=== PATIENT | female | born 1960 | race Caucasian/White ===

== ENCOUNTER 2016-10-03 20:34 | Emergency (ER) | payer OTHER ==
[~2016-10-03] VITALS: Ht 160 cm; Wt 90.5 kg
[~2016-10-03 20:34] MED LIST: CITA20TA11 PO; HYD25 PO; IBUP800T25 PO; ROPI1TAB PO; TRAM50TA2 PO
[2016-10-03 20:48] VITALS: Ht 160 cm; Wt 90.5 kg
--- NOTE | 2016-10-03 22:42 | ERA ---
ER Documentation Chief Complaint Date/Time DATE: 10/03/16 TIME: 22:41 Chief Complaint abd pain x 1 day HPI The patient is a 56-year-old female, presenting to the ER because of acute on chronic abdominal pain for 1 day, associated with dysuria. She denies fever, chills, neck pain, chest pain, dyspnea. The abdominal pain is diffuse but more tender at epigastric and suprapubic area. She complains of nausea, denies vomiting, diarrhea, constipation. She does not smoke nor drink Past medical history: Depression, anxiety, hypertension, history of right breast cancer status post chemotherapy, restless leg syndrome, chronic pain syndrome, gastritis Past surgical history: Hysterectomy, appendectomy, 3 , partial right mastectomy ROS All systems reviewed and are negative except as per history of present illness. Medications Home Meds Active Scripts Hydrocodone/Acetaminophen ([place] 5-325 Tablet) 1 Each Tablet, 1 TAB PO Q6H Y for PAIN, #7 TAB Prov:SHAYLA HOLDER MD 10/04/16 Ibuprofen* (Ibuprofen*) 600 Mg Tablet, 600 MG PO Q6H Y for PAIN, #30 TAB Prov:SHAYLA HOLDER MD 10/04/16 Sulfamethoxazole/Trimethoprim* (Bactrim Ds* Tablet) 1 Each Tablet, 1 TAB PO BID , #14 TAB Prov:SHAYLA HOLDER MD 10/04/16 Ibuprofen* (Motrin*) 800 Mg Tab, 800 MG PO Q6H Y for PAIN AND OR ELEVATED TEMP, #30 TAB Prov:ANGELI WILLARD DO 12/27/15 Reported Medications Cholecalciferol (Vitamin D3) 5,000 Unit Tablet, 5000 UNIT PO DAILY, TAB 10/04/16 Fluticasone Propionate* (Fluticasone Propionate* Nasal) 50 Mcg/[place] - 16 Gm [place].susp, 1 SPRAY NASAL DAILY, #1 BOTTLE TO EACH NOSTRIL 10/04/16 Albuterol Sulfate* (Ventolin HFA*) 18 Gm Hfa.aer.ad, 2 PUFF INHALATION Q4H Y for SHORTNESS OF BREATH, #1 INHALER 10/04/16 Hydrocodone/Acetaminophen ([place] 10-325 Tablet) 1 Each Tablet, 1 EACH PO for PAIN, TAB 10/04/16 Pantoprazole* (Pantoprazole*) 40 Mg Tablet.dr, 40 MG PO DAILY, TAB 10/04/16 Metoclopramide Hcl* (Metoclopramide Hcl*) 10 Mg Tablet, 10 MG PO DAILY Y for NAUSEA AND OR VOMITING, TAB 10/04/16 Ropinirole Hcl* (Ropinirole Hcl*) 1 Mg Tablet, 1 MG PO HS, TAB 07/04/15 Hydrochlorothiazide* (Hydrochlorothiazide*) 25 Mg Tab, 25 MG PO DAILY, TAB 04/28/14 Citalopram Hydrobromide* (Celexa*) 20 Mg Tablet, 20 MG PO DAILY, TAB 04/28/14 Discontinued Scripts Tramadol HCl (Tramadol HCl) 50 Mg Tablet, 50 MG PO Q6, #20 TAB Prov:ANGELI WILLARD DO 12/27/15 Allergies Allergies: Coded Allergies: hydromorphone (Unverified Allergy, Severe, CARDIAC ARREST PER , 02/10) morphine (Unverified Allergy, Unknown, 10/04/16) PMhx/Soc History of Surgery: Yes (TAHBSO, R Lumpectomy, C Section X3, ) Anesthesia Reaction: No Hx Neurological Disorder: No Hx Respiratory Disorders: No Hx Cardiac Disorders: Yes (HTN) Hx Psychiatric Problems: Yes (Depression with medication) Hx Miscellaneous Medical Probl: No Hx Alcohol Use: No Hx Substance Use: No Hx Tobacco Use: No Physical Exam Vitals Vital Signs Date Time Temp Pulse Resp B/P Pulse Ox O2 Delivery O2 Flow Rate FiO2 10/04/16 02:30 62 18 118/59 97 Room Air 10/03/16 20:48 97.6 74 20 156/70 97 Physical Exam Const: No acute distress. Head: Atraumatic. Eyes: Normal Conjunctiva. ENT: Normal External Ears, Nose and Mouth. Neck: Full range of motion. No meningismus. Resp: Clear to auscultation bilaterally. Cardio: Regular rate and rhythm. Abd: Soft, non distended, normal bowel sounds, vague and diffuse abdominal tenderness, no rigidity, rebound, CVA tenderness Skin: No petechiae or rashes. Back: No midline or flank tenderness. Ext: No cyanosis, or edema. Neur: Awake and alert. No focal deficit Psych: Normal Mood and Affect. Result Diagram: 10/03/16 2300 10/03/16 2300 Results 24 hrs Laboratory Tests Test 10/03/16 23:00 10/03/16 23:08 White Blood Count 7.010^3/ul Red Blood Count 4.3510^6/ul Hemoglobin 14.2g/dl Hematocrit 42.4% Mean Corpuscular Volume 97.5fl Mean Corpuscular Hemoglobin 32.6pg Mean Corpuscular Hemoglobin Concent 33.5g/dl Red Cell Distribution Width 13.3% Platelet Count 93687^3/UL Mean Platelet Volume 10.2fl Neutrophils % 60.7% Lymphocytes % 27.4% Monocytes % 9.8% Eosinophils % 1.4% Basophils % 0.4% Nucleated Red Blood Cells % 0.0/100WBC Neutrophils # 4.210^3/ul Lymphocytes # 1.910^3/ul Monocytes # 0.710^3/ul Eosinophils # 0.110^3/ul Basophils # 0.010^3/ul Nucleated Red Blood Cells # 0.010^3/ul Sodium Level 140mmol/L Potassium Level 4.3mmol/L Chloride Level 105mmol/L Carbon Dioxide Level 24mmol/L Anion Gap 15 Blood Urea Nitrogen 22mg/dl Creatinine 0.75mg/dl Glucose Level 93mg/dl Calcium Level 9.3mg/dl Total Bilirubin 0.8mg/dl Direct Bilirubin 0.00mg/dl Indirect Bilirubin 0.8mg/dl Aspartate Amino Transf (AST/SGOT) 29IU/L Alanine Aminotransferase (ALT/SGPT) 41IU/L Alkaline Phosphatase 88IU/L Total Protein 7.7g/dl Albumin 4.8g/dl Globulin 2.90g/dl Albumin/Globulin Ratio 1.65 Lipase 70U/L Bedside Urine pH (LAB) 5.5 Bedside Urine Protein (LAB) Negative Bedside Urine Glucose (UA) Negative Bedside Urine Ketones (LAB) Negative Bedside Urine Blood Negative Bedside Urine Nitrite (LAB) Negative Bedside Urine Leukocyte Esterase (L 1+ Current Medications Medications (Trade) Dose Ordered Sig/Naeem Route PRN Reason Start Time Stop Time Status Last Admin Dose Admin Ondansetron HCl (Zofran Inj) 4 mg ONCE STAT IV 10/03/16 22:57 10/03/16 23:00 DC 10/03/16 23:26 Ketorolac Tromethamine (Toradol) 30 mg ONCE STAT IV 10/03/16 22:57 10/03/16 23:00 DC 10/03/16 23:26 Pantoprazole (Protonix Iv) 40 mg ONCE ONCE IV 10/03/16 23:00 10/03/16 23:01 DC 10/03/16 23:26 Ketorolac Tromethamine (Toradol) 30 mg ONCE ONCE IV 10/04/16 01:47 10/04/16 01:50 DC 10/04/16 01:59 Procedures/MDM [place] [id number] Radiology Main Line: [phone] DIAGNOSTIC IMAGING REPORT Patient: VIOLETA ALSTON : 1960 Age: 56 Sex: F MR #: [id number] DOS: 10/03/16 2257 Ordering MD: SHAYLA HOLDER MD Location: E/R Room/Bed: PROCEDURE: CT abdomen and pelvis without contrast. CLINICAL INDICATION: Dysuria and abdominal pain TECHNIQUE: CT scan of the abdomen and pelvis without contrast was performed. Sagittal and coronal reformatted images were obtained from the axial source images. CTDI = 17.07 mGy; DLP = 896.03 mGy-cm COMPARISON: CT angiogram 07/15/2015 FINDINGS: Visualized lower thorax: The lung bases are clear. There is no evidence for pleural effusion. Liver, gallbladder, pancreas and spleen: Top normal liver size estimated at 18.6 cm with diffuse low attenuation of the hepatic parenchyma more conspicuous than previously compatible with hepatic steatosis. Normal liver contour is maintained. There is no evidence for a liver mass or ductal dilatation. Interval cholecystectomy compared to the previous exam, clips in the gallbladder fossa. No common bile duct abnormality is demonstrated. The pancreas is unremarkable. The spleen is normal in size. Adrenal glands and genitourinary system: The adrenal glands are normal bilaterally. The kidneys are normal and size, contour and attenuation with no evidence for masses, calculi or hydronephrosis. The ureters are unremarkable. The anterior urinary bladder diverticulum is less conspicuous on this unenhanced exam as is the associated lower abdominal wall ventral hernia, the urinary bladder partially contracted but with subtle stranding of the surrounding fat unable to exclude cystitis. The uterus is not visualized compatible with prior hysterectomy. No ovarian or adnexal masses are present. Gastrointestinal system: The stomach is normal in caliber with no abnormality of significance. The small bowel is normal in caliber with no ileus, obstruction or wall thickening. The appendix is not visualized but there are no inflammatory changes of the right lower quadrant to suggest appendicitis. Moderate amount of fecal debris throughout the colon is concerning for constipation with diverticular disease most pronounced and the sigmoid segment. There is no evidence for colitis or diverticulitis. Peritoneum, retroperitoneum, lymph nodes and vessels: The abdominal aorta is normal in caliber. There is no evidence for atherosclerotic calcification. The inferior vena cava is unremarkable. There is no evidence for adenopathy or mass. There is no ascites. No pneumoperitoneum is present. Small fat- containing umbilical hernia is again noted Osseous structures and musculoskeletal findings: There is no fracture, lytic or blastic lesion. Mild degenerative disk narrowing and L2-3 is seen. No muscular abnormality or soft tissue pathology is present. RPTAT:HJJR IMPRESSION: 1. Anterior urinary bladder diverticulum seen previously with associated lower abdominal wall ventral hernia is less conspicuous on this examination, the urinary bladder partially contracted but with subtle stranding of the surrounding fat equivocal for cystitis. 2. Interval cholecystectomy without ductal dilatation. 3. Hepatic steatosis more conspicuous on the prior study. 4. Diverticular disease of the colon without diverticulitis. 5. Stable fat-containing umbilical hernia. Physician Claude Date Time Electronically viewed and signed by Physician Claude on 10/03/2016 23:52 JR/ CC: SHAYLA HOLDER MD MEDICAL MAKING DECISION: The patient is a 56-year-old female, presenting with acute abdominal pain most likely due to acute cystitis. She was treated with Zofran 4 mg IV for Naus and Toradol 30 mg IV for pain and Protonix 40 mg IV for epigastric abdominal discomfort with good response The differential diagnoses considered include but are not limited to cholelithiasis, cholecystitis, cystitis, pancreatitis, hepatitis, gastritis, peptic ulcer disease, gastric ulcer, appendicitis, diverticulitis, cholangitis, choledocholithiasis, partial small bowel obstruction. Departure Diagnosis: Primary Impression: Acute cystitis Condition: Good Comments She was discharged with Bactrim ROMIE, [place] I discussed the findings with the patient. I advised the patient to follow-up with the primary physician in about 1-2 days, sooner if needed and return if any concern. SHAYLA HOLDER MD Oct 03, 2016 22:42
[2016-10-03] MEDS ORDERED: KETOROLAC 30 MG INJ IV STA (22:57)
[2016-10-03] MEDS ORDERED: ONDANSETRON 4 MG INJ IV STA (22:57)
[2016-10-03] MEDS ORDERED: PANTOPRAZOLE 40 MG INJ IV ONE (23:00)
[2016-10-03 23:06] LABS: URINE BLOOD (Dip) POC Negative (NEGATIVE)
[2016-10-03 23:17] LABS: ADD SCAN DIFF NO
[2016-10-03 23:19] LABS: BASOPHILS % 0.4 % (0.0-2.0); EOSINOPHILS # 0.1 10^3/ul (0.0-0.5); EOSINOPHILS % 1.4 % (0.0-7.0); HEMATOCRIT 42.4 % (37.0-47.0); HEMOGLOBIN 14.2 g/dl (12.0-16.0); LYMPHOCYTES # 1.9 10^3/ul (0.8-2.9); LYMPHOCYTES % 27.4 % (15.0-51.0); MEAN CORPUSCULAR HEMOGLOBIN 32.6 pg (29.0-33.0); MEAN CORPUSCULAR HGB CONC 33.5 g/dl (32.0-37.0); MEAN CORPUSCULAR VOLUME 97.5 fl (82.0-101.0); MEAN PLATELET VOLUME 10.2 fl (7.4-10.4); MONOCYTE # 0.7 10^3/ul (0.3-0.9); MONOCYTES % 9.8 % (0.0-11.0); NEUTROPHIL # 4.2 10^3/ul (1.6-7.5); NEUTROPHILS % 60.7 % (39.0-77.0); PLATELET COUNT 231 10^3/UL (140-415); RED BLOOD COUNT 4.35 10^6/ul (4.20-5.40); RED CELL DISTRIBUTION WIDTH 13.3 % (11.5-14.5)
[2016-10-03 23:38] LABS: ALBUMIN 4.8 g/dl (3.3-4.9); ALBUMIN/GLOBULIN RATIO 1.65; BILIRUBIN,INDIRECT 0.8 mg/dl (0-1.1); BILIRUBIN,TOTAL 0.8 mg/dl (0.2-1.3); CALCIUM 9.3 mg/dl (8.4-10.2); CREATININE 0.75 mg/dl (0.44-1.00); POTASSIUM 4.3 mmol/L (3.5-5.1); TOTAL PROTEIN 7.7 g/dl (6.1-8.1)
--- NOTE | 2016-10-03 23:52 | RADRPT ---
PROCEDURE: CT abdomen and pelvis without contrast. CLINICAL INDICATION: Dysuria and abdominal pain TECHNIQUE: CT scan of the abdomen and pelvis without contrast was performed. Sagittal and coronal reformatted images were obtained from the axial source images. CTDI = 17.07 mGy; DLP = 896.03 mGy-c m COMPARISON: CT angiogram 07/15/2015 FINDINGS: Visualized lower thorax: The lung bases are clear. There is no evidence for pleural effusion. Liver, gallbladder, pancreas and spleen: Top normal liver size estimated at 18.6 cm with diffuse lo w attenuation of the hepatic parenchyma more conspicuous than previously compatible with hepatic babatunde atosis. Normal liver contour is maintained. There is no evidence for a liver mass or ductal dilata tion. Interval cholecystectomy compared to the previous exam, clips in the gallbladder fossa. No c ommon bile duct abnormality is demonstrated. The pancreas is unremarkable. The spleen is normal in size. Adrenal glands and genitourinary system: The adrenal glands are normal bilaterally. The kidneys are normal and size, contour and attenuation with no evidence for masses, calculi or hydronephrosis. T he ureters are unremarkable. The anterior urinary bladder diverticulum is less conspicuous on this u nenhanced exam as is the associated lower abdominal wall ventral hernia, the urinary bladder partial ly contracted but with subtle stranding of the surrounding fat unable to exclude cystitis. The uter us is not visualized compatible with prior hysterectomy. No ovarian or adnexal masses are present. Gastrointestinal system: The stomach is normal in caliber with no abnormality of significance. The small bowel is normal in caliber with no ileus, obstruction or wall thickening. The appendix is not visualized but there are no inflammatory changes of the right lower quadrant to suggest appendiciti s. Moderate amount of fecal debris throughout the colon is concerning for constipation with diverti cular disease most pronounced and the sigmoid segment. There is no evidence for colitis or divertic ulitis. Peritoneum, retroperitoneum, lymph nodes and vessels: The abdominal aorta is normal in caliber. The re is no evidence for atherosclerotic calcification. The inferior vena cava is unremarkable. There is no evidence for adenopathy or mass. There is no ascites. No pneumoperitoneum is present. Small fat-containing umbilical hernia is again noted Osseous structures and musculoskeletal findings: There is no fracture, lytic or blastic lesion. Mi ld degenerative disk narrowing and L2-3 is seen. No muscular abnormality or soft tissue pathology i s present. RPTAT:HJJR IMPRESSION: 1. Anterior urinary bladder diverticulum seen previously with associated lower abdominal wall ventra l hernia is less conspicuous on this examination, the urinary bladder partially contracted but with subtle stranding of the surrounding fat equivocal for cystitis. 2. Interval cholecystectomy without ductal dilatation. 3. Hepatic steatosis more conspicuous on the prior study. 4. Diverticular disease of the colon without diverticulitis. 5. Stable fat-containing umbilical hernia. Physician Claude Date Time Electronically viewed and signed by Nikos Carson Physician on 10/03/2016 23:52 JR/
[2016-10-04] MEDS ORDERED: ALBU18HF INHALATION (01:44)
[2016-10-04] MEDS ORDERED: CHOL500010 PO (01:44)
[2016-10-04] MEDS ORDERED: FLUT16SP17 NASAL (01:44)
[2016-10-04] MEDS ORDERED: METO10TA96 PO (01:44)
[2016-10-04] MEDS ORDERED: PANT40TA4 PO (01:44)
[2016-10-04] MEDS ORDERED: HYDR-902 PO (01:44)
[2016-10-04] MEDS ORDERED: KETOROLAC 30 MG INJ IV ONE (01:47)
[2016-10-04] MEDS ORDERED: IBUP-1542 PO (02:20)
[2016-10-04] MEDS ORDERED: SULF1TAB31 PO (02:20)
[2016-10-04] MEDS ORDERED: HYDR-906 PO (02:22)
[2016-10-04 02:30] VITALS: BP 118/59; PULSE 62; RESP 18
== END 2016-10-04 02:41 | disposition home or self-care (01) ==
LOC: E/R 20:34
DX: N30.00 Acute cystitis without hematuria (principal); I10 Essential (primary) hypertension; R11.0 Nausea; Z85.3 Personal history of malignant neoplasm of breast
CPT/HCPCS: 74176; 80053; 81003; 83690; 85025; C9113; J1885; J2405; 36415; 96374; 96375; 96376

== ENCOUNTER 2016-10-06 10:15 | Day surgery (SDC) | payer OTHER ==
[~2016-10-06] VITALS: Ht 160 cm; Wt 89.3 kg
[2016-10-06] VITALS (12 sets, daily range): BP systolic 121–164; BP diastolic 59–83; PULSE 58–78; RESP 13–24; Ht 160 cm; Wt 89.3 kg
[~2016-10-06 10:15] MED LIST changes: +ALBU18HF INHALATION; +CHOL500010 PO; +DIPHENHYDRAMINE 50 MG INJ IV PRN; +FENTAnyl 50 MCG/ML VIAL IV PRN; +FLUT16SP17 NASAL; +HYDR-902 PO; +HYDR-906 PO; +IBUP-1542 PO; +MEPERIDINE 25 MG INJ IV PRN; +METO10TA96 PO; +ONDANSETRON 4 MG INJ IV PRN; +PANT40TA4 PO; +PROCHLORPERAZINE 10 MG INJ IV PRN; +SULF1TAB31 PO; -TRAM50TA2 PO; +oxyCODONE 5 MG TAB PO PRN
[2016-10-06] MEDS ORDERED: CEFAZOLIN 2 GM/50 ML (PMX) 50 ML IVPB ONE (10:30)
[2016-10-06] MEDS ORDERED: SOD CHLORIDE 0.9% 1,000 ML IV SCH (10:30)
[2016-10-06] MEDS ORDERED: ACET1TAB40 PO (10:53)
[2016-10-06] MEDS ORDERED: MELO-109 PO (10:54)
[2016-10-06] MEDS ORDERED: CHOL100062 PO (10:54)
[2016-10-06] MEDS ORDERED: HYDR-902 PO (10:55)
[2016-10-06] MEDS ORDERED: MIDAZOLAM 1 MG/ML 2 ML INJ ONE (13:26)
[2016-10-06] MEDS ORDERED: SUCCINYLCHOLINE CHLORIDE 100 MG/5 ML SYG IV ONE (13:26)
[2016-10-06] MEDS ORDERED: PROPOFOL 20 ML ONE (13:26)
[2016-10-06] MEDS ORDERED: FENTAnyl 50 MCG/ML VIAL ONE ×2 (13:26→14:56)
[2016-10-06] MEDS ORDERED: LIDOCAINE 2% (SDV) 5 ML INJ ONE (13:26)
[2016-10-06] MEDS ORDERED: CEFAZOLIN 1 GM INJ ONE (13:27)
[2016-10-06] MEDS ORDERED: ROCURONIUM 50 MG INJ ONE (13:27)
[2016-10-06] MEDS ORDERED: BUPIVACAINE 0.25% (MPF) 30 ML INJ ONE (13:33)
[2016-10-06] MEDS ORDERED: POLYMYXIN/BACITRACIN 1L IRRIG ONE (13:33)
[2016-10-06] MEDS ORDERED: EPHEDrine SULFATE 50 MG/5 ML SYG ONE (14:24)
[2016-10-06] MEDS ORDERED: METOCLOPRAMIDE 10 MG INJ ONE (14:27)
[2016-10-06] MEDS ORDERED: ONDANSETRON 4 MG INJ ONE (14:27)
[2016-10-06] MEDS ORDERED: DEXAMETHASONE 4 MG/ML 1 ML INJ ONE (14:27)
[2016-10-06] MEDS ORDERED: GLYCOPYRROLATE 0.4 MG INJ ONE (15:00)
[2016-10-06] MEDS ORDERED: NEOSTIGMINE 3 MG/3 ML SYRINGE ONE (15:00)
--- NOTE | 2016-10-06 15:15 | OPR ---
Date/Time of Note Date/Time of Note DATE: 10/06/16 TIME: 15:13 Operative Report Procedure Date: Oct 06, 2016 Preoperative Diagnosis incisional hernia Postoperative Diagnosis same Operation Performed lap incisional hernia repair mesh implantation lap lysis of adhesions therapeutic injection of subcutaneous marcaine Surgeon: Missy ROCHA business assistant: ISMAEL PRADHAN MD, G. SEONG Oct 06, 2016 15:14
[2016-10-06] MEDS ORDERED: ACETAMINOPHEN/CODEINE #3 TAB PO ONE (15:30)
--- NOTE | 2016-10-06 16:00 | OPR ---
DATE OF OPERATION: 10/06/2016 INDICATION: This is a 56-year-old female with a ventral incisional hernia. She requests surgical r epair. Risks, alternatives, benefits, and personnel were discussed with the patient. Patient expre ssed understanding and consents to the operation. PREOPERATIVE DIAGNOSIS: Incisional ventral hernia. POSTOPERATIVE DIAGNOSIS: Incisional ventral hernia. OPERATION PERFORMED: 1. Laparoscopic incisional [place] [address]. 2. Implantation of mesh, Ventralex ST 15 x 20 [place] [address]. 3. Laparoscopic lysis of adhesions. 4. Therapeutic injection of [place] [address]. SURGEON: Randi Black MD DRILLER HAND: Genevieve Alvarenga SA SPECIMENS: None. COMPLICATIONS: None. ANESTHESIA: General. PROCEDURE: The patient was taken to the OR and prepped and draped in the usual sterile fashion. Gaston rgical timeout was performed. IV antibiotics were given. Left upper quadrant 5 mm transverse incis ion is made transversely with a 15 blade. Using a 5 mm optical trocar, optical entry was performed. Pneumoperitoneum was established. Left flank 12 mm optical trocar and left lower quadrant 5 mm op tical trocars were placed under direct visualization. Upon initial inspection, there was a large am ount of adhesed anterior abdominal surface. This was taken down laparoscopically with laparoscopic Harmonic jennifer. The hernia was identified. The hernia was repaired by reinforcing with Ventralex ST mesh. This was placed securely with a SecureStrap. There was good hemostasis. The ports were r emoved under direct visualization. Skin was closed using skin awais. Local anesthesia is injecte d subcutaneously. Dictated By: RANDI BLACK MD SB/AYAAN Conf#: [id number] DID#: [id number]
== END 2016-10-06 17:30 | disposition home or self-care (01) ==
LOC: SDS 10:15
PROVIDERS: ATTEND Surgery
DX: K43.2 Incisional hernia without obstruction or gangrene (principal); I10 Essential (primary) hypertension; E66.9 Obesity, unspecified; Z68.34 Body mass index [BMI] 34.0-34.9, adult
CPT/HCPCS: 49655; C1781; J0690; J1100; J2250; J2405; J2710; J2765; J3010; J7999

== ENCOUNTER 2016-11-25 05:54 | Emergency (ER) | payer OTHER ==
[~2016-11-25] VITALS: Ht 162.6 cm; Wt 88.6 kg
[~2016-11-25 05:54] MED LIST changes: +ACET1TAB40 PO; -ALBU18HF INHALATION; +CHOL100062 PO; -CHOL500010 PO; -DIPHENHYDRAMINE 50 MG INJ IV PRN; -FENTAnyl 50 MCG/ML VIAL IV PRN; -FLUT16SP17 NASAL; -HYDR-906 PO; -IBUP800T25 PO; +MELO-109 PO; -MEPERIDINE 25 MG INJ IV PRN; -ONDANSETRON 4 MG INJ IV PRN; -PROCHLORPERAZINE 10 MG INJ IV PRN; -oxyCODONE 5 MG TAB PO PRN
[2016-11-25 05:56] VITALS: Ht 162.6 cm; Wt 88.6 kg
--- NOTE | 2016-11-25 06:25 | ERD ---
ER Documentation Chief Complaint Date/Time DATE: 11/25/16 TIME: 06:23 Chief Complaint sp trip and fallthis morning, back pain, both leg pain HPI Patient is a 56-year-old female who states she was getting out of bed today and she tripped and fell landing on her lower back. Denies any head injury or KO. She states she has a history of back problems and so she took a Tylenol 3 but it did not help. She is able to ambulate slowly with pain. Denies any numbness or tingling. Denies any bowel or bladder incontinence. Pain is throbbing and radiates to her lower extremities bilaterally. ROS All systems reviewed and are negative except as per history of present illness. Medications Home Meds Active Scripts Ibuprofen* (Ibuprofen*) 600 Mg Tablet, 600 MG PO Q6H Y for PAIN, #30 TAB Prov:SHAYLA HOLDER MD 10/04/16 Sulfamethoxazole/Trimethoprim* (Bactrim Ds* Tablet) 1 Each Tablet, 1 TAB PO BID , #14 TAB Prov:SHAYLA HOLDER MD 10/04/16 Reported Medications Hydrocodone/Acetaminophen ([place] 10-325 Tablet) 1 Each Tablet, 1 EACH PO BID Y for PAIN, TAB 10/06/16 Cholecalciferol* (Vitamin D3*) 1,000 Unit Tablet, 2000 UNIT PO DAILY, TAB 10/06/16 Meloxicam* (Meloxicam*) 7.5 Mg Tablet, 7.5 MG PO DAILY, #30 TAB 10/06/16 Acetaminophen with Codeine (Acetaminophen-Cod #3 Tablet) 1 Each Tablet, 1 TAB PO BID Y for PAIN, #7 TAB 10/06/16 Pantoprazole* (Pantoprazole*) 40 Mg Tablet.dr, 40 MG PO DAILY, TAB 10/04/16 Metoclopramide Hcl* (Metoclopramide Hcl*) 10 Mg Tablet, 10 MG PO DAILY Y for NAUSEA AND OR VOMITING, TAB 10/04/16 Ropinirole Hcl* (Ropinirole Hcl*) 1 Mg Tablet, 1 MG PO HS, TAB 07/04/15 Hydrochlorothiazide* (Hydrochlorothiazide*) 25 Mg Tab, 25 MG PO DAILY, TAB 04/28/14 Citalopram Hydrobromide* (Celexa*) 20 Mg Tablet, 20 MG PO DAILY, TAB 1/2/15 Allergies Allergies: Coded Allergies: hydromorphone (Unverified Allergy, Severe, CARDIAC ARREST PER , 04/12) PMhx/Soc History of Surgery: Yes (R MASTECTOMY, APPY, CHOLY, X2 C SEC, HERNIA REPAIR, ORTHO SX X 4, HEMEROID ) Anesthesia Reaction: No Hx Neurological Disorder: No Hx Respiratory Disorders: No Hx Cardiac Disorders: No Hx Psychiatric Problems: No Hx Miscellaneous Medical Probl: No Hx Alcohol Use: No Hx Substance Use: No Hx Tobacco Use: No FmHx Family History: No diabetes Physical Exam Vitals Vital Signs Date Time Temp Pulse Resp B/P Pulse Ox O2 Delivery O2 Flow Rate FiO2 11/25/16 05:56 98.5 77 20 163/90 98 Physical Exam INITIAL VITAL SIGNS: Reviewed by me GENERAL: Awake, alert and oriented x 4, well appearing, nontoxic, speaking in full sentences. No acute distress HEAD: Atraumatic NECK: Supple. No masses. Full range of motion. No meningismus. No midline tenderness. RESPIRATORY: Clear to auscultation bilaterally. Symmetric chest wall rise. No wheezing or rales. No accessory muscle use. CV: Regular rate and rhythm. No murmurs, rubs, or gallops. ABDOMEN: Soft, non-distended. Nontender. Negative [place]. Negative McBurneys point tenderness. No CVA tenderness bilaterally. No guarding. No rebound. EXTREMITIES: No clubbing or cyanosis. No edema. Moving all extremities normally. BACK: No midline tenderness to palpation. No step-offs. Results 24 hrs Current Medications Medications (Trade) Dose Ordered Sig/Naeem Route PRN Reason Start Time Stop Time Status Last Admin Dose Admin Acetaminophen/ Hydrocodone Bitart ([place] (5/325)) 1 tab ONCE ONCE PO 11/25/16 06:30 11/25/16 06:31 DC Morphine Sulfate (morphine) 6 mg ONCE ONCE IM 11/25/16 07:00 11/25/16 07:01 DC 11/25/16 07:01 Ondansetron HCl (Zofran Odt) 4 mg ONCE STAT ODT 11/25/16 06:42 11/25/16 06:43 DC 11/25/16 07:00 Procedures/MDM Patient is a 56-year-old female who fell this morning getting out of bed. She is neurovascularly intact. She is able to ambulate slowly with pain. She was given IM morphine and Zofran ODT. The differential diagnosis includes but is not limited to muscle strain, ligament strain, contusion, arthritis, discogenetic disease, non-musculoskeletal, cauda equina syndrome, cord compression, abscess and others. X-ray was unremarkable. Patient counseled regarding my diagnostic impression and care plan. Prior to discharge all questions answered. Pt agrees with treatment plan and understands strict return precautions. Pt is instructed to follow up with primary care provider within 24- 48 hours. Precautionary instructions provided including instructions to return to the ER if not improving or for any worsening or changing symptoms or concerns. Departure Diagnosis: Primary Impression: Back pain Condition: Stable MANUEL BUTLER PA-C Nov 25, 2016 06:25
[2016-11-25] MEDS ORDERED: HYDROCODONE/APAP (5/325) TAB PO ONE (06:30)
[2016-11-25] MEDS ORDERED: ONDANSETRON (ODT) 4 MG TAB ODT STA (06:42)
[2016-11-25] MEDS ORDERED: morphine 10 MG INJ IM ONE (07:00)
--- NOTE | 2016-11-25 08:56 | RADRPT ---
PROCEDURE: XR Lumbar Spine. CLINICAL INDICATION: back pain, trauma TECHNIQUE: AP, lateral and cone-down lateral view of the lumbar spine were obtained. COMPARISON: No prior studies are available for comparison. FINDINGS: There is normal vertebral mineralization and alignment. No fracture or subluxation is seen. The disc spaces are normal in appearance. The posterior elements are unremarkable. There are surgical clips in the gallbladder fossa consistent with cholecystectomy. RPTAT: AA IMPRESSION: No definite evidence of acute traumatic injury. If clinical suspicion for a fracture persists, cons ider a CT or MR study for further evaluation. Status post cholecystectomy. Physician Francisco Javier Date Time Electronically viewed and signed by Physician Francisco Javier on 11/25/2016 08:56 /
== END 2016-11-25 09:19 | disposition home or self-care (01) ==
LOC: FTE 05:54
DX: S39.92XA Unspecified injury of lower back, initial encounter (principal); W01.0XXA Fall on same level from slipping, tripping and stumbling without subsequent striking against object, initial encounter; Y92.9 Unspecified place or not applicable
CPT/HCPCS: 72100; J2270; Z7610; 96372

== ENCOUNTER 2016-12-25 19:40 | Emergency (ER) | payer OTHER ==
[~2016-12-25] VITALS: Ht 167.6 cm; Wt 91.5 kg
[~2016-12-25 19:40] MED LIST changes: -HYD25 PO; +HYDR25TA6 PO; -MELO-109 PO; +MELO-216 PO
[2016-12-25 19:45] VITALS: Ht 167.6 cm; Wt 91.5 kg
[2016-12-25] MEDS ORDERED: SOD CHLORIDE 0.9% 1,000 ML IV STA (20:50)
[2016-12-25] MEDS ORDERED: ONDANSETRON 4 MG INJ IV STA (20:50)
[2016-12-25] MEDS ORDERED: CEFTRIAXONE 1 GM/50 ML (PMX) 50 ML IVPB STA (20:50)
--- NOTE | 2016-12-25 20:56 | ERD ---
ER Documentation Chief Complaint Date/Time DATE: 12/25/16 TIME: 20:47 Chief Complaint back pain x 2 days, denies injury HPI This 56-year-old female presents to emergency department today with complaint of upper back , chest pain with breathing. pain radiates from posteriorly to anteriorly left chest described as sharp . pt denies injury or fall , Hx of back pain same symptoms 3 months ago. patient reports history pneumonia. Denies nausea, shortness of breath or dizziness. ROS All systems reviewed and are negative except as per history of present illness. Medications Home Meds Active Scripts Hydrocodone/Acetaminophen (Valliant 5-325 Tablet) 1 Each Tablet, 1 TAB PO Q6H Y for PAIN, #7 TAB Prov:SINGHHARVEYALEXANDRA 12/26/16 Ibuprofen* (Ibuprofen*) 600 Mg Tablet, 600 MG PO Q6H Y for PAIN, #30 TAB Prov:SHAYLA HOLDER MD 10/04/16 Sulfamethoxazole/Trimethoprim* (Bactrim Ds* Tablet) 1 Each Tablet, 1 TAB PO BID , #14 TAB Prov:SHAYLA HOLDER MD 10/04/16 Reported Medications Hydrocodone/Acetaminophen (Valliant 10-325 Tablet) 1 Each Tablet, 1 EACH PO BID Y for PAIN, TAB 10/06/16 Cholecalciferol* (Vitamin D3*) 1,000 Unit Tablet, 2000 UNIT PO DAILY, TAB 10/06/16 Meloxicam* (Meloxicam*) 7.5 Mg Tablet, 7.5 MG PO DAILY, #30 TAB 10/06/16 Acetaminophen with Codeine (Acetaminophen-Cod #3 Tablet) 1 Each Tablet, 1 TAB PO BID Y for PAIN, #7 TAB 10/06/16 Pantoprazole* (Pantoprazole*) 40 Mg Tablet.dr, 40 MG PO DAILY, TAB 10/04/16 Metoclopramide Hcl* (Metoclopramide Hcl*) 10 Mg Tablet, 10 MG PO DAILY Y for NAUSEA AND OR VOMITING, TAB 10/04/16 Ropinirole Hcl* (Ropinirole Hcl*) 1 Mg Tablet, 1 MG PO HS, TAB 07/04/15 Hydrochlorothiazide* (Hydrochlorothiazide*) 25 Mg Tab, 25 MG PO DAILY, TAB 04/28/14 Citalopram Hydrobromide* (Celexa*) 20 Mg Tablet, 20 MG PO DAILY, TAB 04/28/14 Allergies Allergies: Coded Allergies: hydromorphone (Unverified Allergy, Severe, CARDIAC ARREST PER , ) PMhx/Soc History of Surgery: Yes (R MASTECTOMY, APPY, CHOLY, X2 C SEC, HERNIA REPAIR, ORTHO SX X 4, HEMEROID ) Anesthesia Reaction: No Hx Neurological Disorder: No Hx Respiratory Disorders: No Hx Cardiac Disorders: No Hx Psychiatric Problems: No Hx Miscellaneous Medical Probl: No Hx Alcohol Use: No Hx Substance Use: No Hx Tobacco Use: No Smoking Status: Never smoker Physical Exam Vitals , Vitals stable triage notes reviewed Physical Exam Const: Well-nourished well-hydrated in obvious discomfort no acute distress Head: Eyes: ENT: Neck: Full range of motion..No JVD, Resp: Clear to auscultation bilaterally, No rales wheezes or rhonchi No or egophony Cardio: Regular rate and rhythm, no [id number] S3-S4 Abd: Soft, non tender, non distended. Normal bowel sounds Skin: Back: Reproducible rhomboid and trapezial back pain Ext: Neur: Awake and alert Psych: Normal Mood and Affect Results 24 hrs Laboratory Tests Test 12/25/16 21:18 White Blood Count 7.310^3/ul Red Blood Count 4.4010^6/ul Hemoglobin 14.3g/dl Hematocrit 41.9% Mean Corpuscular Volume 95.2fl Mean Corpuscular Hemoglobin 32.5pg Mean Corpuscular Hemoglobin Concent 34.1g/dl Red Cell Distribution Width 13.2% Platelet Count 45249^3/UL Mean Platelet Volume 10.5fl Neutrophils % 59.0% Lymphocytes % 30.8% Monocytes % 7.9% Eosinophils % 1.8% Basophils % 0.4% Nucleated Red Blood Cells % 0.0/100WBC Neutrophils # (Manual) 4.310^3/ul Lymphocytes # 2.210^3/ul Monocytes # 0.610^3/ul Eosinophils # 0.110^3/ul Basophils # 0.010^3/ul Nucleated Red Blood Cells # 0.010^3/ul Sodium Level 141mmol/L Potassium Level 5.3mmol/L Chloride Level 106mmol/L Carbon Dioxide Level 23mmol/L Anion Gap 17 Blood Urea Nitrogen 20mg/dl Creatinine 0.88mg/dl Glucose Level 98mg/dl Calcium Level 9.5mg/dl Troponin I < 0.012ng/ml Current Medications Medications (Trade) Dose Ordered Sig/Naeem Route PRN Reason Start Time Stop Time Status Last Admin Dose Admin Sodium Chloride 1,000 ml @ 1,000 mls/hr Q1H STAT IV 12/25/16 20:50 12/25/16 21:49 DC 12/25/16 21:39 Ceftriaxone Sodium (Rocephin) 50 ml @ 100 mls/hr ONCE STAT IVPB 12/25/16 20:50 12/25/16 21:32 DC 12/25/16 22:08 Morphine Sulfate (morphine) 4 mg ONCE ONCE IV 12/25/16 21:39 12/25/16 21:40 DC 12/25/16 21:51 Ondansetron HCl (Zofran Inj) 4 mg ONCE STAT IV 12/25/16 20:50 12/25/16 21:32 DC 12/25/16 21:39 Acetaminophen/ Hydrocodone Bitart (Valliant (5/325)) 1 tab ONCE ONCE PO 12/26/16 01:30 12/26/16 01:33 DC 12/26/16 02:19 Interpretation text CBC shows no evidence of hemorrhage or infection Chemistry shows no evidence of significant electrolyte abnormalities or renal insufficiency Liver function tests shows no evidence of acute biliary or hepatic dysfunction Lipase shows no evidence of acute pancreatitis Cardiac biomarkers show no evidence of acute myocardial injury or coronary ischemia Procedures/MDM EKG: Read by Dr. Mckeon Rate/Rhythm: Normal Sinus Rhythm at a ventricular rate of 71 bpm, no ectopy QRS, ST, T-waves: No changes consistent w/ acute ischemia Impression: No evidence of ischemia or arrhythmia PROCEDURE: XR Chest. CLINICAL INDICATION: Pneumonia. TECHNIQUE: PA and lateral views of the chest COMPARISON: No prior Chest x-ray FINDINGS: The cardiomediastinal silhouette is within normal limits of size. The lungs are clear without pleural effusion or focal consolidation. No pneumothorax. The osseous structures and soft tissues are unremarkable. IMPRESSION: 1. No evidence for active cardiopulmonary disease. Electronically viewed and signed by Rika Manley Physician on 12/26/2016 00:58 This 56-year-old female presents to emergency department for back pain worse on the right side radiating to the right side of her chest with pain with breathing , patient reports history of pneumonia, denies cardiovascular disease. Patient' s initial workup includes chest x-ray, IV fluids, 1 g of Rocephin intravascularly and labs. Laboratory findings are unremarkable for acute infection or anemia, unremarkable for electrolyte imbalance or renal insufficiency, unremarkable for acute coronary syndrome, EKG, troponin is normal. Chest x-ray is negative for evidence of consolidation, atelectasis, or infiltrate. Patient will be discharged home with Valliant for pain instructed to follow-up with primary physician for possible referral to physical therapy. Today's findings are consistent with a muscular skeletal myopathy. Patient is stable with no new complaints during ER course, clinically there is no current evidence to suggest meningitis, sepsis, acute abdomen, acute coronary syndromes , pulmonary embolism or any other emergent condition appearing to require further evaluation or hospitalization. I feel the patient is stable for discharge at this time. I have discussed results, examination findings, the treatment plan with the patient and family present prior to discharge. Indications for emergent reevaluation, side effects of medication were also discussed. All questions were answered. Patient verbalizes understanding and agrees with plan of care. Departure Diagnosis: Primary Impression: Back pain Back pain location: back pain in other location Chronicity: acute Qualified Code: M54.9 - Other acute back pain Condition: Good Patient Instructions: Back Pain (Acute Or Chronic) [facility] Additional Instructions: Thank you for for coming to [facility] for your care today. Please ask your nurse or provider if you have questions about your care today and do not leave until all your questions have been answered. Please use any medications given as directed and follow-up with your doctor (or the doctor you were referred to) in the next 2-3 days. If you do not have a primary care doctor you may follow up at the [facility] (listed below). You may also use motrin and tylenol as needed for fever and/or pain unless instructed otherwise by your provider or nurse. Indications for more urgent follow-up have been discussed, but you may return to the Emergency Department at ANY time for any worrisome or worsening symptoms. If you have abdominal pain, please know that no test or exam you received is perfect and you should follow up within 8 hours for continued pain. If you had any imaging studies today, such as an X-Ray or CT Scan, these studies will be reviewed later by a radiologist. You will be called if there are important findings that were not identified today, so make sure the contact information you provided at registration is correct. If you received any narcotic pain control medicine today, such as Vicodin, Morphine or Dilaudid, your coordination and judgment may be affected for a number of hours. Please do not drive or operate heavy machinery, and you may want someone to assist you at home. If you were given a prescription for narcotic medication, be aware that it is very addictive- use sparingly and only if necessary. ALEXANDRA WINTERS Dec 25, 2016 20:56 studies will be reviewed later by a radiologist. You will be called if there are important findings that were not identified today, so make sure the contact information you provided at registration is correct. If you received any narcotic pain control medicine today, such as Vicodin, Morphine or Dilaudid, your coordination and judgment may be affected for a number of hours. Please do not drive or operate heavy machinery, and you may want someone to assist you at home. If you were given a prescription for narcotic medication, be aware that it is very addictive- use sparingly and only if necessary. ALEXANDRA WINTERS Dec 25, 2016 20:56
[2016-12-25 21:26] LABS: BASOPHILS % 0.4 % (0.0-2.0); EOSINOPHILS # 0.1 10^3/ul (0.0-0.5); EOSINOPHILS % 1.8 % (0.0-7.0); HEMATOCRIT 41.9 % (37.0-47.0); HEMOGLOBIN 14.3 g/dl (12.0-16.0); LYMPHOCYTES # 2.2 10^3/ul (0.8-2.9); LYMPHOCYTES % 30.8 % (15.0-51.0); MEAN CORPUSCULAR HEMOGLOBIN 32.5 pg (29.0-33.0); MEAN CORPUSCULAR HGB CONC 34.1 g/dl (32.0-37.0); MEAN CORPUSCULAR VOLUME 95.2 fl (82.0-101.0); MEAN PLATELET VOLUME 10.5 fl (7.4-10.4); MONOCYTE # 0.6 10^3/ul (0.3-0.9); MONOCYTES % 7.9 % (0.0-11.0); PLATELET COUNT 215 10^3/UL (140-415); RED CELL DISTRIBUTION WIDTH 13.2 % (11.5-14.5); WHITE BLOOD COUNT 7.3 10^3/ul (4.8-10.8)
[2016-12-25] MEDS ORDERED: morphine 4 MG/ML VIAL IV ONE (21:39)
[2016-12-25 22:19] LABS: CALCIUM 9.5 mg/dl (8.4-10.2); CREATININE 0.88 mg/dl (0.44-1.00); POTASSIUM 5.3 mmol/L (3.5-5.1)
--- NOTE | 2016-12-26 00:59 | RADRPT ---
PROCEDURE: XR Chest. CLINICAL INDICATION: Pneumonia. TECHNIQUE: PA and lateral views of the chest COMPARISON: No prior Chest x-ray FINDINGS: The cardiomediastinal silhouette is within normal limits of size. The lungs are clear without pleur al effusion or focal consolidation. No pneumothorax. The osseous structures and soft tissues are unr emarkable. IMPRESSION: 1. No evidence for active cardiopulmonary disease. RPTAT:AAJJ Rika Manley Physician Date Time Electronically viewed and signed by Rika Manley Physician on 12/26/2016 00:58 LINDSEY/
[2016-12-26] MEDS ORDERED: HYDROCODONE/APAP (5/325) TAB PO ONE (01:30)
[2016-12-26] MEDS ORDERED: HYDR-906 PO (01:39)
[2016-12-26 02:28] VITALS: BP 135/77; PULSE 71; RESP 20; TEMP 98.7
== END 2016-12-26 02:29 | disposition home or self-care (01) ==
LOC: FTE 19:40
DX: M54.6 Pain in thoracic spine (principal)
CPT/HCPCS: 36415; 71020; 80048; 84484; 85025; 87040; 93005; 96374; 96375; J0696; J2270; J2405; J7030; Z7502; Z7610

== ENCOUNTER 2017-01-19 02:26 | Emergency (ER) | payer OTHER ==
[~2017-01-19] VITALS: Ht 160 cm; Wt 89.1 kg
[~2017-01-19 02:26] MED LIST changes: +HYDR-906 PO
[2017-01-19 02:43] VITALS: Ht 160 cm; Wt 89.1 kg
--- NOTE | 2017-01-19 04:31 | RADRPT ---
PROCEDURE: CT BRAIN WITHOUT CONTRAST CLINICAL INDICATION: 56-year-old female with dizziness. TECHNIQUE: The study was performed utilizing a GE LightSpeed VCT 64-slice CT scanner. Direct axia l sections were obtained from the foramen magnum to the vertex without the use of intravenous contra st material. Sagittal and coronal reformations were obtained. One or more the following dose reduct ion techniques were utilized: automated exposure control, adjustment of the mA and/or kV according t o patient's size or use of iterative reconstruction technique. The images were viewed on a PACS [employer]. CTD/vol = 45.0 mGy; Total Exam DLP = 720.2 mGy-cm. COMPARISON: CT brain July 12, 2015; MRI brain July 11, 2015. FINDINGS: The ventricles have a normal size, shape and position. There is no evidence for mass effect or midl ine shift. There are no intracranial areas of abnormal attenuation. There is no evidence for acute intra or extra-axial blood. The bony calvarium is intact. The partially visualized paranasal sinuse s and mastoid air cells are without significant abnormal soft tissue. IMPRESSION: Unremarkable noncontrast CT scan of the brain. CALL REPORT: A call report was made to [facility] ER Dr. Bajwa on January 19, 2017 at 04:25 a.m. .Dave Smith MD, Date Time Electronically viewed and signed by .Dave Smith MD, on 01/19/2017 04:31 .M/
--- NOTE | 2017-01-19 04:38 | RADRPT ---
PROCEDURE: CHEST - 1 VIEW CLINICAL INDICATION: 56-year-old female with chest pain. TECHNIQUE: A single frontal AP semi-erect view of the chest was performed. The images were review ed on a PACS workstation. COMPARISON: None. FINDINGS: The cardiomediastinal silhouette is within normal limits. There is a shallow inspiration with elevat ion right hemidiaphragm. There is bilateral lower lung zone subsegmental atelectasis. There is no e vidence for an infiltrate. There is no evidence for congestive heart failure. There is no evidence for pneumothorax. The osseous structures are intact. IMPRESSION: Shallow inspiration with elevated right hemidiaphragm and bilateral lower lung zone subsegmental ate lectasis. .Dave Smith MD, Date Time Electronically viewed and signed by .Dave Smith MD, on 01/19/2017 04:38 .M/
--- NOTE | 2017-01-19 05:51 | ERD ---
ER Documentation Chief Complaint Date/Time DATE: 01/19/17 TIME: 05:49 Chief Complaint left arm pain x 3 days, also c/o pain bilateral legs HPI This is a 48-year-old female comes in with complaints of left arm numbness in bilateral lower extremity numbness that started about 4 hours ago. She had a similar episode earlier this week and was diagnosed with TIA and sent home. She said the numbness got progressively worse. Denies any aphasia. Denies any other current complaints. Upon arrival, patient's symptoms began resolving in triage. No chest pain. No focal neurological complaints currently. ROS All systems reviewed and are negative except as per history of present illness. Medications Home Meds Active Scripts Hydrocodone/Acetaminophen ([place] 5-325 Tablet) 1 Each Tablet, 1 TAB PO Q6H Y for PAIN, #7 TAB Prov:ALEXANDRA WINTERS 12/26/16 Ibuprofen* (Ibuprofen*) 600 Mg Tablet, 600 MG PO Q6H Y for PAIN, #30 TAB Prov:SHAYLA HOLDER MD 10/04/16 Sulfamethoxazole/Trimethoprim* (Bactrim Ds* Tablet) 1 Each Tablet, 1 TAB PO BID , #14 TAB Prov:SHAYLA HOLDER MD 10/04/16 Reported Medications Hydrocodone/Acetaminophen ([place] 10-325 Tablet) 1 Each Tablet, 1 EACH PO BID Y for PAIN, TAB 10/06/16 Cholecalciferol* (Vitamin D3*) 1,000 Unit Tablet, 2000 UNIT PO DAILY, TAB 10/06/16 Meloxicam* (Meloxicam*) 7.5 Mg Tablet, 7.5 MG PO DAILY, #30 TAB 10/06/16 Acetaminophen with Codeine (Acetaminophen-Cod #3 Tablet) 1 Each Tablet, 1 TAB PO BID Y for PAIN, #7 TAB 10/06/16 Pantoprazole* (Pantoprazole*) 40 Mg Tablet.dr, 40 MG PO DAILY, TAB 10/04/16 Metoclopramide Hcl* (Metoclopramide Hcl*) 10 Mg Tablet, 10 MG PO DAILY Y for NAUSEA AND OR VOMITING, TAB 10/04/16 Ropinirole Hcl* (Ropinirole Hcl*) 1 Mg Tablet, 1 MG PO HS, TAB 07/04/15 Hydrochlorothiazide* (Hydrochlorothiazide*) 25 Mg Tab, 25 MG PO DAILY, TAB 04/28/14 Citalopram Hydrobromide* (Celexa*) 20 Mg Tablet, 20 MG PO DAILY, TAB 04/28/14 Allergies Allergies: Coded Allergies: hydromorphone (Unverified Allergy, Severe, CARDIAC ARREST PER , ) PMhx/Soc History of Surgery: Yes (R MASTECTOMY, APPY, CHOLY, X2 C SEC, HERNIA REPAIR, ORTHO SX X 4, HEMEROID ) Anesthesia Reaction: No Hx Neurological Disorder: Yes (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 Neck: Full range of motion..~ No meningismus. Resp: Clear to auscultation bilaterally Cardio: Regular rate and rhythm, no murmurs Abd: Soft, non tender, non distended. Normal bowel sounds Skin: No petechiae or rashes Back: No midline or flank tenderness Ext: No cyanosis, or edema Neur: Awake and alert Psych: Normal Mood and Affect Results 24 hrs Laboratory Tests Test 01/19/17 05:39 Bedside Glucose 83mg/dL Procedures/MDM EKG: Rate/Rhythm: [Normal Sinus Rhythm] QRS, ST, T-waves: [No changes consistent w/ acute ischemia] Impression: [No evidence of ischemia or arrhythmia] Chest X-ray 1V Interpreted by me: Soft Tissue: No acute abnormalities Bones: No acute abnormalities Mediastinum/Cardiac Silhouette/Lungs: [No acute abnormalities] CT of the head is negative Medical decision-makin-year-old female with a TIA. Spoke to Dr. Yin who is on-call for [facility]. He is set up outpatient neurology follow-up for later on today Departure Diagnosis: Primary Impression: TIA (transient ischemic attack) Transient cerebral ischemia type: unspecified Qualified Code: G45.9 - Transient cerebral ischemia, unspecified type Condition: Stable Patient Instructions: Transient Ischemic Attack (TIA) ISHAN LARSON Jan 19, 2017 05:51
[2017-01-19 06:03] LABS: BASOPHILS % 0.6 % (0.0-2.0); EOSINOPHILS # 0.1 10^3/ul (0.0-0.5); EOSINOPHILS % 2.3 % (0.0-7.0); HEMATOCRIT 40.1 % (37.0-47.0); HEMOGLOBIN 13.5 g/dl (12.0-16.0); LYMPHOCYTES # 1.5 10^3/ul (0.8-2.9); LYMPHOCYTES % 27.9 % (15.0-51.0); MEAN CORPUSCULAR HEMOGLOBIN 32.5 pg (29.0-33.0); MEAN CORPUSCULAR HGB CONC 33.7 g/dl (32.0-37.0); MEAN CORPUSCULAR VOLUME 96.6 fl (82.0-101.0); MEAN PLATELET VOLUME 10.3 fl (7.4-10.4); MONOCYTE # 0.6 10^3/ul (0.3-0.9); MONOCYTES % 10.5 % (0.0-11.0); NEUTROPHIL # 3.1 10^3/ul (1.6-7.5); NEUTROPHILS % 58.5 % (39.0-77.0); PLATELET COUNT 202 10^3/UL (140-415); RED BLOOD COUNT 4.15 10^6/ul (4.20-5.40); RED CELL DISTRIBUTION WIDTH 13.2 % (11.5-14.5); WHITE BLOOD COUNT 5.2 10^3/ul (4.8-10.8)
[2017-01-19 06:29] VITALS: BP 115/64; PULSE 77; RESP 16
[2017-01-19 06:31] LABS: INR 0.95; PROTIME 12.7 Sec (12.2-14.2)
[2017-01-19 06:32] LABS: PARTIAL THROMBOPLASTIN TIME 32.1 Sec (25.0-35.0)
[2017-01-19 06:34] LABS: ANION GAP 10 (8-16); BLOOD UREA NITROGEN 17 mg/dl (7-20); CALCIUM 8.9 mg/dl (8.4-10.2); CARBON DIOXIDE 26 mmol/L (21-31); CHLORIDE 110 mmol/L (97-110); CREATININE 0.77 mg/dl (0.44-1.00); GLUCOSE 94 mg/dl (70-220); POTASSIUM 3.9 mmol/L (3.5-5.1); SODIUM 142 mmol/L (135-144)
[2017-01-19 06:57] LABS: TROPONIN-I < 0.012 ng/ml (0.00-0.12)
== END 2017-01-19 06:30 | disposition home or self-care (01) ==
LOC: FTE 02:26 → E/R 06:30
DX: G45.9 Transient cerebral ischemic attack, unspecified (principal); R40.2252 Coma scale, best verbal response, oriented, at arrival to emergency department; R07.9 Chest pain, unspecified; R40.2142 Coma scale, eyes open, spontaneous, at arrival to emergency department; R40.2362 Coma scale, best motor response, obeys commands, at arrival to emergency department
CPT/HCPCS: 70450; 71010; 80048; 82962; 83036; 84484; 85025; 85610; 85730; 93005; Z7502

== ENCOUNTER 2017-04-07 06:27 | Emergency (ER) | payer SELFPAY ==
[~2017-04-07] VITALS: Wt 92.8 kg
== END 2017-04-07 08:27 | disposition left against medical advice (07) ==
LOC: FTE 06:27
DX: Z53.21 Procedure and treatment not carried out due to patient leaving prior to being seen by health care provider (principal)

== ENCOUNTER 2017-04-16 03:29 | Observation (INO) | payer OTHER ==
[~2017-04-16] VITALS: Ht 160 cm; Wt 92.1 kg
[2017-04-16] MEDS ORDERED: NITROGLYCERIN 2% 1 GM OINT PKT TD STA (04:24)
[2017-04-16] MEDS ORDERED: ONDANSETRON 4 MG INJ IV STA (04:24)
[2017-04-16] MEDS ORDERED: morphine 4 MG/ML VIAL IV STA ×2 (04:24→07:38)
[2017-04-16] MEDS ORDERED: ASPIRIN 325 MG TAB PO STA (04:24)
[2017-04-16] MEDS ORDERED: NITROGLYCERIN (SL) 0.4 MG TAB SL PRN ×2 (04:30→16:00)
--- NOTE | 2017-04-16 04:37 | ERD ---
ER Documentation Chief Complaint Chief Complaint chest pain/sob x 40 minutes HPI This is a 56-year-old female with a history of hypertension and breast cancer complains of left sided substernal chest pressure or shortness of breath and diaphoresis onset 40 minutes prior to arrival. No palpitations syncope. The patient says this is her first episode of chest pain. She says that she has not had any recent illness or cough. There is no radiation of pain to the neck shoulders back or abdomen. Currently pain is moderate ROS All systems reviewed and are negative except as per history of present illness. Medications Home Meds Active Scripts Hydrocodone/Acetaminophen ([place] 5-325 Tablet) 1 Each Tablet, 1 TAB PO Q6H Y for PAIN, #7 TAB Prov:SINGHALEXANDRA 12/26/16 Ibuprofen* (Ibuprofen*) 600 Mg Tablet, 600 MG PO Q6H Y for PAIN, #30 TAB Prov:SHAYLA HOLDER MD 10/04/16 Reported Medications Lorazepam* (Ativan*) 2 Mg Tablet, 2 MG PO HS Y for ANXIETY, #30 TAB 04/16/17 Hydrocodone/Acetaminophen ([place] 10-325 Tablet) 1 Each Tablet, 1 EACH PO BID Y for PAIN, TAB 10/06/16 Cholecalciferol* (Vitamin D3*) 1,000 Unit Tablet, 2000 UNIT PO DAILY, TAB 10/06/16 Meloxicam* (Meloxicam*) 7.5 Mg Tablet, 7.5 MG PO DAILY, #30 TAB 10/06/16 Acetaminophen with Codeine (Acetaminophen-Cod #3 Tablet) 1 Each Tablet, 1 TAB PO BID Y for PAIN, #7 TAB 10/06/16 Pantoprazole* (Pantoprazole*) 40 Mg Tablet.dr, 40 MG PO DAILY, TAB 10/04/16 Metoclopramide Hcl* (Metoclopramide Hcl*) 10 Mg Tablet, 10 MG PO DAILY Y for NAUSEA AND OR VOMITING, TAB 10/04/16 Ropinirole Hcl* (Ropinirole Hcl*) 1 Mg Tablet, 1 MG PO HS, TAB 07/04/15 Hydrochlorothiazide* (Hydrochlorothiazide*) 25 Mg Tab, 25 MG PO DAILY, TAB 04/28/14 Discontinued Reported Medications Citalopram Hydrobromide* (Celexa*) 20 Mg Tablet, 20 MG PO DAILY, TAB 04/28/14 Discontinued Scripts Sulfamethoxazole/Trimethoprim* (Bactrim Ds* Tablet) 1 Each Tablet, 1 TAB PO BID , #14 TAB Prov:SHAYLA HOLDER MD 10/04/16 Allergies Allergies: Coded Allergies: hydromorphone (Unverified Allergy, Severe, CARDIAC ARREST PER , ) PMhx/Soc History of Surgery: Yes (R MASTECTOMY, APPY, CHOLY, X2 C SEC, HERNIA REPAIR, ORTHO SX X 4, HEMEROID ) Anesthesia Reaction: No Hx Neurological Disorder: Yes (stroke 1 year ago) Hx Respiratory Disorders: No Hx Cardiac Disorders: No Hx Psychiatric Problems: No Hx Miscellaneous Medical Probl: No Hx Alcohol Use: No Hx Substance Use: No Hx Tobacco Use: No FmHx Family History: No coronary disease Physical Exam Vitals Vital Signs Date Time Temp Pulse Resp B/P Pulse Ox O2 Delivery O2 Flow Rate FiO2 04/16/17 03:43 97.9 78 20 165/85 100 Physical Exam Const: Well-developed, well-nourished Head: Atraumatic, normocephalic Eyes: Normal Conjunctiva, PERRLA, EOMI, normal sclera, no nystagmus ENT: Normal External Ears, Nose and Mouth, moist mucus membranes. Neck: Full range of motion. No meningismus, no lymphadenopathy. Resp: Clear to auscultation bilaterally, no wheezing, rhonchi, rales Cardio: Regular rate and rhythm, no murmurs, S1 S2 present Abd: Soft, non tender x 4, non distended. Normal bowel sounds, no guarding or rebound, no pulsitile abdominal masses or bruits Skin: No petechiae or rashes, no ecchymosis , no maculopapular rash Back: No midline or flank tenderness Ext: No cyanosis, or edema, FROM x 4, normal inspection, neurovascularly intact x 4 Neur: Awake and alert, STR 5/5 x 4, sensation intact x 4, no focal findings, cerebellum intact Psych: Normal Mood and Affect Results 24 hrs Current Medications Medications (Trade) Dose Ordered Sig/Naeem Route PRN Reason Start Time Stop Time Status Last Admin Dose Admin Aspirin (Aspirin) 325 mg ONCE STAT PO 04/16/17 04:24 04/16/17 04:26 DC 04/16/17 04:53 Nitroglycerin (Nitroglycerin 2% Oint) 1 inch ONCE STAT TD 04/16/17 04:24 04/16/17 04:26 DC 04/16/17 04:52 Nitroglycerin (Nitroglycerin (Sl Tab) 0.4 Mg) 1 tab Q5M UP TO 3 DOSES PRN SL CHEST PAIN 04/16/17 04:30 Morphine Sulfate (morphine) 4 mg ONCE STAT IV 04/16/17 04:24 04/16/17 04:26 DC 04/16/17 04:53 Ondansetron HCl (Zofran Inj) 4 mg ONCE STAT IV 04/16/17 04:24 04/16/17 04:26 DC 04/16/17 04:36 Procedures/MDM EKG: Rate/Rhythm: Normal sinus rhythm normal axis normal intervals QRS, ST, QT: NORMAL LA, QRS, prolonged QT] Impression: Abnormal EKG: PROCEDURE: Chest. CLINICAL INDICATION: Chest pain. TECHNIQUE: Single frontal view of the chest was obtained. COMPARISON: None. FINDINGS: The cardiac silhouette is within normal limits. The aortic arch is unremarkable. There is no focal consolidation, vascular congestion or pleural effusion. There is no pneumothorax. Right axillary clips are present. IMPRESSION: No evidence for active cardiopulmonary disease. .Albino Velasco MD, MD Date Time Electronically viewed and signed by .Albino Velasco MD, on 04/16/2017 04:57 .T/ CC: ANGELI WILLARD DO I have deemed the patient unstable for transfer due to chest pain Patient's symptoms are concerning for cardiac cause will require inpatient workup and continuous monitoring. Further w/u for ischemia, arrhythmia, PE or dissection will be deferred to the inpatient team. Accepting Care Team: Current data and ongoing care discussed. Time: Time of admission Primary Provider: [XOXOXO] Consulting: [XOXOXO] Outstanding Data: none Departure Diagnosis: Primary Impression: Chest pain Chest pain type: unspecified Qualified Code: R07.9 - Chest pain, unspecified type Condition: Stable ANGELI WILLARD DO Apr 16, 2017 04:37
--- NOTE | 2017-04-16 04:57 | RADRPT ---
PROCEDURE: Chest. CLINICAL INDICATION: Chest pain. TECHNIQUE: Single frontal view of the chest was obtained. COMPARISON: None. FINDINGS: The cardiac silhouette is within normal limits. The aortic arch is unremarkable. There is no focal consolidation, vascular congestion or pleural effusion. There is no pneumothorax. Right axillary c lips are present. IMPRESSION: No evidence for active cardiopulmonary disease. .Albino Velasco MD, Date Time Electronically viewed and signed by .Albino Velasco MD, on 04/16/2017 04:57 .T/
[2017-04-16] MEDS ORDERED: LORA-444 PO (04:58)
[2017-04-16 07:49] LABS: BASOPHILS % 0.6 % (0.0-2.0); EOSINOPHILS # 0.1 10^3/ul (0.0-0.5); EOSINOPHILS % 1.9 % (0.0-7.0); HEMATOCRIT 39.1 % (37.0-47.0); HEMOGLOBIN 12.9 g/dl (12.0-16.0); LYMPHOCYTES # 1.6 10^3/ul (0.8-2.9); LYMPHOCYTES % 29.9 % (15.0-51.0); MEAN CORPUSCULAR HEMOGLOBIN 31.9 pg (29.0-33.0); MEAN CORPUSCULAR VOLUME 96.8 fl (82.0-101.0); MEAN PLATELET VOLUME 10.3 fl (7.4-10.4); MONOCYTE # 0.4 10^3/ul (0.3-0.9); MONOCYTES % 8.3 % (0.0-11.0); NEUTROPHIL # 3.1 10^3/ul (1.6-7.5); NEUTROPHILS % 58.9 % (39.0-77.0); PLATELET COUNT 180 10^3/UL (140-415); RED BLOOD COUNT 4.04 10^6/ul (4.20-5.40); RED CELL DISTRIBUTION WIDTH 13.2 % (11.5-14.5); WHITE BLOOD COUNT 5.3 10^3/ul (4.8-10.8)
[2017-04-16] MEDS ORDERED: DIPHENHYDRAMINE 50 MG INJ IV ONE (08:00)
[2017-04-16] MEDS ORDERED: METHYLPREDNISOLONE 125 MG INJ IV ONE (08:00)
[2017-04-16 08:09] LABS: INR 0.93; PROTIME 12.6 Sec (11.9-14.9)
[2017-04-16 08:10] LABS: PARTIAL THROMBOPLASTIN TIME 32.5 Sec (25.0-35.0)
[2017-04-16 08:12] LABS: ALANINE AMINOTRANSFERASE 38 IU/L (13-69); ALBUMIN 3.3 g/dl (3.3-4.9); ALBUMIN/GLOBULIN RATIO 1.06; ALKALINE PHOSPHATASE 55 IU/L (42-121); ANION GAP 12 (8-16); ASPARTATE AMINO TRANSFERASE 25 IU/L (15-46); BILIRUBIN,INDIRECT 0.7 mg/dl (0-1.1); BILIRUBIN,TOTAL 0.7 mg/dl (0.2-1.3); BLOOD UREA NITROGEN 11 mg/dl (7-20); CARBON DIOXIDE 25 mmol/L (21-31); CHLORIDE 108 mmol/L (97-110); CREATININE 0.81 mg/dl (0.44-1.00); GLUCOSE 103 mg/dl (70-220); POTASSIUM 4.2 mmol/L (3.5-5.1); SODIUM 141 mmol/L (135-144); TOTAL PROTEIN 6.4 g/dl (6.1-8.1)
[2017-04-16 08:25] LABS: TROPONIN-I < 0.012 ng/ml (0.00-0.12)
[2017-04-16] MEDS ORDERED: ONDANSETRON 4 MG INJ IV PRN ×2 (13:30→16:00)
[2017-04-16] MEDS ORDERED: ACETAMINOPHEN 325 MG TAB PO PRN ×2 (13:30→16:00)
[2017-04-16] MEDS ORDERED: METOCLOPRAMIDE 10 MG TAB PO PRN ×2 (14:30)
[2017-04-16] MEDS ORDERED: ACETAMINOPHEN/CODEINE #3 TAB PO PRN (14:30)
[2017-04-16] MEDS ORDERED: HYDROCODONE/APAP (5/325) TAB PO PRN (14:30)
[2017-04-16] MEDS ORDERED: LORAZEPAM 1 MG TAB PO PRN (14:30)
[2017-04-16 14:37] LABS: D-DIMER 2353.32 ng/ml (<460)
[2017-04-16] MEDS ORDERED: IOHEXOL 100 ML ONE (15:28)
[2017-04-16] MEDS ORDERED: IOHEXOL 350MG/ML 50 ML BTL ONE (15:28)
[2017-04-16] MEDS ORDERED: SOD CHLORIDE 0.9% 100 ML ONE (15:28)
--- NOTE | 2017-04-16 15:55 | HP ---
Date/Time of Note Date/Time of Note DATE: 04/16/17 TIME: 15:28 Assessment/Plan VTE Prophylaxis VTE Prophylaxis Intervention: LMWH Lines/Catheters IV [facility]from [facility] Saline Lock Assessment/Plan Assessment/Plan 56-year-old female with: 1. Left-sided chest pain, seems to be sharp in nature worsens with deep breath , d-dimer elevated. Check CT angiogram of the chest along with Doppler of the lower extremities to evaluate for possible venous thromboembolism. Trend troponins, 2D echocardiogram. Fasting lipid panel Admit to telemetry. 2. History of right breast cancer, status post surgical resection, chemotherapy , radiation as of 2010. 3. Hypertension: Continue outpatient medications 4. Fibromyalgia, chronic pain syndrome, narcotic dependent, patient on Nelson as needed for pain control. 5. Osteoarthritis, for now holding off and NSAIDs. Will reevaluate depending on the results from CAT scan. Continue Nelson as needed for pain control 6. Obesity: Lifestyle modification Prophylaxis: Lovenox for DVT prophylaxis unless Doppler or CT angiogram comes back positive and was switched to treatment dose. Protonix for GI prophylaxis Disposition: Admit to telemetry, follow-up results from CT angiogram and Doppler of lower extremity, if negative will plan for stress test in a.m. HPI/ROS Admit Date/Time Admit Date/Time Hx of Present Illness Chief complaint: Left-sided chest pain acute onset History of presenting illness: This is a 56-year-old female, obese, with hypertension, chronic pain syndrome/fibromyalgia narcotic dependent, breast cancer status post right mastectomy followed by chemo and radiation 2010, osteoarthritis who presented the emergency department with complaints of acute onset of left-sided chest pain this morning. Patient reports that she woke up with this pain in her left chest, is a stabbing pain under her left breast, she had severe dyspnea on exertion while walking from her bedroom to the restroom, the pain is worse when she is taking a deep breath which sounds like a pleuritic pain. She had a Nitropaste in place , I did remove it as it was noted that her systolic blood pressures were in the 90s. He denies any fevers, chills, cough, vomiting. She did report some nausea with this chest pain. According to the ER physician the patient was still having it in the ED, her first 2 troponins are negative but her symptoms are still concerning. Her d-dimer is greater than 2000. Reviewing her records the patient was here at [facility] couple of weeks ago with complaint of left lower leg pain, she reports that she has been having left lower extremity pain from her cough all the way to her inner thigh. Currently is mostly in the inner thigh area. She has had some swelling on and off of the left lower extremity. He denies any previous history of venous thromboembolism. CT angiogram of the chest is pending, Doppler of the lower extremities are pending. Patient is being admitted to telemetry observation for now. If she is ruled out for venous thromboembolism, we will complete her cardiac workup. She denies any further gastrointestinal or genitourinary complaints, she denies any neurological deficit. ROS Constitutional: nausea, no complaints Eyes: no complaints ENT: no complaints Respiratory: other (Dyspnea on exertion) Cardiovascular: chest pain Gastrointestinal: no complaints Genitourinary: no complaints Musculoskeletal: other (Left leg pain) Skin: no complaints Neurologic: no complaints Endocrine: no complaints Lymphatic: no complaints PMH/Family/Social Past Medical History Right breast cancer diagnosed 2010, status post mastectomy and chemotherapy and radiation in 2010 Osteoarthritis Fibromyalgia/chronic pain syndrome Gastroesophageal reflux disease Past Surgical History Status post left shoulder arthroscopic surgery 2 Status post left elbow tendon surgery 1 Status post left knee arthroscopic surgery Status post cholecystectomy Status post hysterectomy and unilateral oophorectomy Status post right mastectomy versus lumpectomy Family History Significant Family History: no pertinent family hx Social History Alcohol Use: none Smoking Status: Never smoker Drug Use: none Exam/Review of Systems Vital Signs Vitals Vital Signs Date Time Temp Pulse Resp B/P Pulse Ox O2 Delivery O2 Flow Rate FiO2 04/16/17 13:07 97.8 71 18 99/63 100 Nasal Cannula 04/16/17 06:30 2 Exam Constitutional: alert, oriented, other (obese ) Respiratory: clear to auscultation, normal air movement, other (Stabbing chest pain with deep breath) Cardiovascular: nl pulses, regular rate and rhythm Gastrointestinal: non-tender, soft Musculoskeletal: nl extremities to inspection Extremities: normal pulses, other (No edema, clubbing or cyanosis) Neurological: FINE WIRE DRAWER II-XII intact, nl mental status, nl speech, nl strength Additional Comments D-dimer 2353 Labs Result Diagram: 04/16/17 0737 04/16/17 0737 Medications Medications Current Medications Acetaminophen/ Codeine Phosphate (Tylenol No.3) 1 tab BID PRN PO PAIN; Start 04/16/17 at 14:30 Cholecalciferol (Vitamin D) 2,000 unit DAILY PO ; Start 04/17/17 at 09:00 Hydrochlorothiazide (Hydrochlorothiazide) 25 mg DAILY PO ; Start 04/17/17 at 09 :00 Acetaminophen/ Hydrocodone Bitart (Nelson (5/325)) 1 tab Q6H PRN PO PAIN; Start 04/16/17 at 14:30 Lorazepam (Ativan) 2 mg HS PRN PO ANXIETY; Start 04/16/17 at 14:30 Pantoprazole (Protonix Tab) 40 mg DAILY PO ; Start 04/17/17 at 09:00 Ropinirole HCl (Requip) 1 mg HS PO ; Start 04/16/17 at 21:00 Metoclopramide HCl (Reglan) 10 mg Q8 PRN PO NAUSEA AND/OR VOMITING; Start at 14:30 Procedures Procedures PROCEDURE: Chest. CLINICAL INDICATION: Chest pain. TECHNIQUE: Single frontal view of the chest was obtained. COMPARISON: None. FINDINGS: The cardiac silhouette is within normal limits. The aortic arch is unremarkable. There is no focal consolidation, vascular congestion or pleural effusion. There is no pneumothorax. Right axillary clips are present. IMPRESSION: No evidence for active cardiopulmonary disease. .Albino Velasco MD, MD Date Time Electronically viewed and signed by .Albino Velasco MD, on 04/16/2017 04:57 .T/ CC: ANGELI WILLARD DO EKG: Normal sinus rhythm, no acute changes Doppler lower extremity bilaterally pending CT angiogram chest pending UVALDO BRIGHT Apr 16, 2017 15:38
[2017-04-16] MEDS ORDERED: DOCUSATE SODIUM 100 MG CAP PO PRN (16:00)
[2017-04-16] MEDS ORDERED: NACL 0.9% 3 ML SYG IV SCH (16:00)
[2017-04-16] MEDS ORDERED: BISACODYL 10 MG SUPP PR PRN (16:00)
[2017-04-16] MEDS ORDERED: MAGNESIUM HYDROXIDE 30ML CUP PO PRN (16:00)
--- NOTE | 2017-04-16 16:19 | RADRPT ---
PROCEDURE: US Lower extremity Venous. CLINICAL INDICATION: Bilateral leg swelling TECHNIQUE: Multiple sonographic images of the bilateral lower extremity deep venous system was obt ained utilizing dickens scale, color-flow, compressive sonography and doppler imaging with augmentation . COMPARISON: None. FINDINGS: There is normal compressibility, phasicity and Doppler flow within the bilateral common femoral, fem oral and popliteal veins. Visualized portions of the calf veins are patent. IMPRESSION: No sonographic evidence for deep venous thrombosis. RPTAT:AAJJ Quang Veliz Physician Date Time Electronically viewed and signed by Quang Veliz Physician on 04/16/2017 16:19 /
[2017-04-16 16:58] VITALS: TEMP 98.1
[2017-04-16 19:49] VITALS: BP 138/63; RESP 20
[2017-04-16 20:14] VITALS: PULSE 62
[2017-04-16] MEDS: morphine 2 MG INJ IV PRN (20:17)
[2017-04-16 20:20] VITALS: Ht 160 cm; Wt 92.1 kg
[2017-04-16] MEDS ORDERED: ROPINIROLE 1 MG TAB PO SCH (21:00)
[2017-04-16 21:29] LABS: CREATINE KINASE 36 IU/L (23-200)
[2017-04-16] MEDS ORDERED: ENOXAPARIN 100 MG/ML SYG SC SCH (21:30)
[2017-04-16 21:39] LABS: CK-MB < 0.22 ng/ml (0.0-2.4)
[2017-04-16 21:44] LABS: TROPONIN-I < 0.012 ng/ml (0.00-0.12)
[2017-04-16 23:43] VITALS: BP 133/66; RESP 20
[2017-04-17] VITALS (9 sets, daily range): BP systolic 103–125; BP diastolic 55–69; PULSE 58–81; RESP 18–20
[2017-04-17] MEDS ORDERED: ASPIRIN 81 MG TAB PO SCH (09:00)
[2017-04-17] MEDS ORDERED: HYDROCHLOROTHIAZIDE 25 MG TAB PO SCH (09:00)
[2017-04-17] MEDS ORDERED: PANTOPRAZOLE (EC) 40 MG TAB PO SCH (09:00)
[2017-04-17] MEDS ORDERED: ENOXAPARIN 40 MG/0.4 ML SYG SC SCH (09:00)
[2017-04-17] MEDS ORDERED: ASPIRIN (EC) 81 MG TAB PO SCH (09:00)
[2017-04-17] MEDS ORDERED: CHOLECALCIFEROL 1,000 UNIT TAB PO SCH (09:00)
[2017-04-17] MEDS: morphine 2 MG INJ IV PRN (09:01)
--- NOTE | 2017-04-17 10:02 | PN ---
Date/Time of Note Date/Time of Note DATE: 04/17/17 TIME: 09:50 Assessment/Plan VTE Prophylaxis VTE Prophylaxis Intervention: LMWH (treatment dose ) Lines/Catheters IV Catheter Type (from Nrsg): Saline Lock Assessment/Plan Assessment/Plan 56-year-old female with: 1. Left-sided chest pain, seems to be sharp in nature worsens with deep breath , d-dimer elevated. LE doppler negative and CTA still pending Patient empirically on Lovenox while awaiting CTA pending IV access AM labs pending CE neg x 3 2D echocardiogram being done currently and will reading 2. History of right breast cancer, status post surgical resection, chemotherapy , radiation as of 2010. 3. Hypertension: Continue outpatient medications 4. Fibromyalgia, chronic pain syndrome, narcotic dependent, patient on Mcdermitt as needed for pain control. 5. Osteoarthritis, for now holding off and NSAIDs. Will reevaluate depending on the results from CAT scan. Continue Mcdermitt as needed for pain control 6. Obesity: Lifestyle modification Prophylaxis: On treatment dose of Lovenox pending CTA. Protonix for GI prophylaxis. Disposition: follow-up results from CT angiogram and keep NPO as may need stress test today or in AM. Subjective 24 Hr Interval Summary Free Text/Dictation Patient with episode of left sided pain, may be pleuritic in nature with nausea... Still awaiting CTA due to difficult access Telemetry wnl and EKG wnl CE neg x 3 and 2D echo pending Exam/Review of Systems Vital Signs Vitals Vital Signs Date Time Temp Pulse Resp B/P Pulse Ox O2 Delivery O2 Flow Rate FiO2 04/17/17 08:24 98.0 65 04/17/17 08:24 18 125/65 98 04/16/17 16:58 Nasal Cannula 2.0 Intake and Output 04/16/17 04/16/17 04/17/17 15:00 23:00 07:00 Intake Total 220 ml Balance 220 ml Exam Constitutional: alert, obese, oriented, well developed Respiratory: clear to auscultation, normal air movement Cardiovascular: nl pulses, regular rate and rhythm Gastrointestinal: non-tender, soft Musculoskeletal: nl extremities to inspection, nl gait and stance Extremities: normal pulses Neurological: CAR SALTER II-XII intact, nl mental status, nl speech, nl strength Results Result Diagram: 04/16/1737 04/16/17736 Results 24 hrs Laboratory Tests Test 04/16/17 13:15 04/16/17 13:25 04/16/17 20:54 D-Dimer 2353.32 H D-Dimer Comment Troponin I 0.016 < 0.012 Creatine Kinase 36 Creatine Kinase Index 0.6 Creatinine Kinase MB (Mass) < 0.22 Imaging Free Text/Dictation PROCEDURE: US Lower extremity Venous. CLINICAL INDICATION: Bilateral leg swelling TECHNIQUE: Multiple sonographic images of the bilateral lower extremity deep venous system was obtained utilizing dickens scale, color-flow, compressive sonography and doppler imaging with augmentation. COMPARISON: None. FINDINGS: There is normal compressibility, phasicity and Doppler flow within the bilateral common femoral, femoral and popliteal veins. Visualized portions of the calf veins are patent. IMPRESSION: No sonographic evidence for deep venous thrombosis. RPTAT:AAJJ Physician Melissa Date Time Electronically viewed and signed by Quang Veliz Physician on 04/16/2017 16 :19 MH/ Medications Medications Current Medications Acetaminophen/ Codeine Phosphate (Tylenol No.3) 1 tab BID PRN PO PAIN; Start 04/16/17 at 14:30 Cholecalciferol (Vitamin D) 2,000 unit DAILY PO Last administered on 09:04; Admin Dose 2,000 UNIT; Start 04/17/17 at 09:00 Hydrochlorothiazide (Hydrochlorothiazide) 25 mg DAILY PO Last administered on 04/17/17 09:03; Admin Dose 25 MG; Start 04/17/17 at 09:00 Acetaminophen/ Hydrocodone Bitart (Mcdermitt (5/325)) 1 tab Q6H PRN PO PAIN Last administered on 04/16/17 20:47; Admin Dose 1 TAB; Start 04/16/17 at 14:30 Lorazepam (Ativan) 2 mg HS PRN PO ANXIETY; Start 04/16/17 at 14:30 Pantoprazole (Protonix Tab) 40 mg DAILY PO Last administered on 04/17/17 09: 03; Admin Dose 40 MG; Start 04/17/17 at 09:00 Ropinirole HCl (Requip) 1 mg HS PO Last administered on 04/16/17 22:05; Admin Dose 1 MG; Start 04/16/17 at 21:00 Metoclopramide HCl (Reglan) 10 mg Q8 PRN PO NAUSEA AND/OR VOMITING Last administered on 04/16/17 20:43; Admin Dose 10 MG; Start 04/16/17 at 14:30 Ondansetron HCl (Zofran Inj) 4 mg Q6H PRN IV NAUSEA AND/OR VOMITING Last administered on 04/17/17 09:01; Admin Dose 4 MG; Start 04/16/17 at 16:00 Nitroglycerin (Nitroglycerin (Sl Tab) 0.4 Mg) 1 tab Q5M PRN SL CHEST PAIN Last administered on 04/17/17 09:06; Admin Dose 1 TAB; Start 04/16/17 at 16:00 Acetaminophen (Tylenol Tab) 650 mg Q6H PRN PO PAIN LEVEL 1-3 OR FEVER; Start 04/16/17 at 16:00 Morphine Sulfate (morphine) 2 mg Q4H PRN IV PAIN LEVEL 7-10 Last administered on 04/17/17 09:01; Admin Dose 2 MG; Start 04/16/17 at 16:00 Docusate Sodium (Colace) 100 mg Q12H PRN PO CONSTIPATION; Start 04/16/17 at 16 :00 Magnesium Hydroxide (Milk Of Mag) 30 ml DAILY PRN PO CONSTIPATION; Start 04/16 at 16:00 Bisacodyl (Dulcolax Supp) 10 mg DAILY PRN [place] CONSTIPATION; Start 04/16/17 at 16:00 Aspirin (Halfprin) 81 mg DAILY PO Last administered on 04/17/17 09:04; Admin Dose 81 MG; Start 04/17/17 at 09:00 Atorvastatin Calcium (Lipitor) 20 mg HS PO ; Start 04/17/17 at 21:00 UVALDO BRIGHT Apr 17, 2017 10:01
[2017-04-17 10:44] LABS: BASOPHILS % 0.2 % (0.0-2.0); HEMATOCRIT 39.1 % (37.0-47.0); HEMOGLOBIN 13.4 g/dl (12.0-16.0); LYMPHOCYTES # 1.9 10^3/ul (0.8-2.9); LYMPHOCYTES % 17.5 % (15.0-51.0); MEAN CORPUSCULAR HEMOGLOBIN 32.2 pg (29.0-33.0); MEAN CORPUSCULAR HGB CONC 34.3 g/dl (32.0-37.0); MEAN PLATELET VOLUME 10.7 fl (7.4-10.4); MONOCYTE # 0.5 10^3/ul (0.3-0.9); MONOCYTES % 4.8 % (0.0-11.0); NEUTROPHIL # 8.5 10^3/ul (1.6-7.5); NEUTROPHILS % 77.1 % (39.0-77.0); PLATELET COUNT 223 10^3/UL (140-415); RED BLOOD COUNT 4.16 10^6/ul (4.20-5.40); RED CELL DISTRIBUTION WIDTH 13.2 % (11.5-14.5)
--- NOTE | 2017-04-17 10:51 | CONS ---
Date/Time of Note Date/Time of Note DATE: 04/17/17 TIME: 10:47 Assessment/Plan Assessment/Plan Additional Assessment/Plan Chest pain Groin pain Hypertension History of breast cancer -Patient with mid and left-sided chest discomfort worse with deep inspiration and palpation of left breast. D-dimer is elevated. Serial cardiac enzymes remain negative. Patient awaiting CT pulmonary angiogram. Lower extremity venous Doppler is negative for DVT. Check echocardiogram. Consultation Date/Type/Reason Admit Date/Time Type of Consultation: cv Reason for Consultation Chest pain and leg pain Hx of Present Illness This is a 56-year-old female with past medical history of hypertension, breast cancer who presents with left breast and mid chest pain and left leg pain. Pain is in the left breast region and sharp in nature. Pain is worse with deep inspiration and pushing on her chest. Patient also complains of intermittent shortness of breath at times at rest at times with activity. She also complains of left groin and upper leg pain over the past day. Because of the above symptoms, patient came to the emergency room for further evaluation care. She denies any cough at the current time. 12 point review of systems was performed with all pertinent positives and negatives mentioned above and all else is negative Past Medical History Breast cancer Medical History: hypertension Past Surgical History Including but not limited to breast surgery, hernia repair Social History Alcohol Use: none Smoking Status: Never smoker Drug Use: none Exam/Review of Systems Vital Signs Vitals Vital Signs Date Time Temp Pulse Resp B/P Pulse Ox O2 Delivery O2 Flow Rate FiO2 04/17/17 08:24 98.0 65 04/17/17 08:24 18 125/65 98 04/16/17 16:58 Nasal Cannula 2.0 Intake and Output 04/16/17 04/16/17 04/17/17 14:59 22:59 06:59 Intake Total 220 ml Balance 220 ml Exam No apparent distress Constitutional: alert, obese, oriented Head: normocephalic Respiratory: other (Coarse breath sounds bilaterally, no wheezing) Cardiovascular: other (S1-S2 heard), regular rate and rhythm Gastrointestinal: bowel sounds, non-tender, soft Musculoskeletal: other (Pain with palpation left side and mid chest region) Extremities: edema (Trivial) Results Result Diagram: 04/16/17 0737 04/16/17 0737 Results 24 hrs Laboratory Tests Test 04/16/17 13:15 04/16/17 13:25 04/16/17 20:54 04/17/17 09:40 D-Dimer 2353.32 H D-Dimer Comment Troponin I 0.016 < 0.012 Creatine Kinase 36 Creatine Kinase Index 0.6 Creatinine Kinase MB (Mass) < 0.22 White Blood Count Pending Red Blood Count Pending Hemoglobin Pending Hematocrit Pending Mean Corpuscular Volume Pending Mean Corpuscular Hemoglobin Pending Mean Corpuscular Hemoglobin Concent Pending Red Cell Distribution Width Pending Platelet Count Pending Mean Platelet Volume Pending Medications Medications Current Medications Acetaminophen/ Codeine Phosphate (Tylenol No.3) 1 tab BID PRN PO PAIN; Start 04/16/17 at 14:30 Cholecalciferol (Vitamin D) 2,000 unit DAILY PO Last administered on 09:04; Admin Dose 2,000 UNIT; Start 04/17/17 at 09:00 Hydrochlorothiazide (Hydrochlorothiazide) 25 mg DAILY PO Last administered on 04/17/17 09:03; Admin Dose 25 MG; Start 04/17/17 at 09:00 Acetaminophen/ Hydrocodone Bitart (Allen (5/325)) 1 tab Q6H PRN PO PAIN Last administered on 04/16/17 20:47; Admin Dose 1 TAB; Start 04/16/17 at 14:30 Lorazepam (Ativan) 2 mg HS PRN PO ANXIETY; Start 04/16/17 at 14:30 Pantoprazole (Protonix Tab) 40 mg DAILY PO Last administered on 04/17/17 09: 03; Admin Dose 40 MG; Start 04/17/17 at 09:00 Ropinirole HCl (Requip) 1 mg HS PO Last administered on 04/16/17 22:05; Admin Dose 1 MG; Start 04/16/17 at 21:00 Metoclopramide HCl (Reglan) 10 mg Q8 PRN PO NAUSEA AND/OR VOMITING Last administered on 04/16/17 20:43; Admin Dose 10 MG; Start 04/16/17 at 14:30 Ondansetron HCl (Zofran Inj) 4 mg Q6H PRN IV NAUSEA AND/OR VOMITING Last administered on 04/17/17 09:01; Admin Dose 4 MG; Start 04/16/17 at 16:00 Nitroglycerin (Nitroglycerin (Sl Tab) 0.4 Mg) 1 tab Q5M PRN SL CHEST PAIN Last administered on 04/17/17 09:06; Admin Dose 1 TAB; Start 04/16/17 at 16:00 Acetaminophen (Tylenol Tab) 650 mg Q6H PRN PO PAIN LEVEL 1-3 OR FEVER; Start 04/16/17 at 16:00 Morphine Sulfate (morphine) 2 mg Q4H PRN IV PAIN LEVEL 7-10 Last administered on 04/17/17 09:01; Admin Dose 2 MG; Start 04/16/17 at 16:00 Docusate Sodium (Colace) 100 mg Q12H PRN PO CONSTIPATION; Start 04/16/17 at 16 :00 Magnesium Hydroxide (Milk Of Mag) 30 ml DAILY PRN PO CONSTIPATION; Start 04/16 at 16:00 Bisacodyl (Dulcolax Supp) 10 mg DAILY PRN [place] CONSTIPATION; Start 04/16/17 at 16:00 Aspirin (Halfprin) 81 mg DAILY PO Last administered on 04/17/17 09:04; Admin Dose 81 MG; Start 04/17/17 at 09:00 Atorvastatin Calcium (Lipitor) 20 mg HS PO ; Start 04/17/17 at 21:00 Procedures Procedures ECG demonstrates sinus rhythm at 81 bpm, PVC, QRS 86 ms, nonspecific ST abnormalities Gene Kahn DO Apr 17, 2017 10:51
[2017-04-17 11:05] LABS: CHOL/HDL RATIO 3.6 RATIO; MAGNESIUM 2.3 mg/dl (1.7-2.5); PHOSPHORUS 3.1 mg/dl (2.5-4.9)
--- NOTE | 2017-04-17 14:05 | RADRPT ---
Echocardiogram Report Patient Name: VIOLETA ALSTON Gender: Female Date: 1960 Study Date: 17-Apr-2017 Preforming Machine Operator: CHANTELLE Location: 5546 Ref. Physician: NEYDA BRIGHT Quality: Good Procedures: Transthoracic echocardiogram with complete 2D, M-Mode, and doppler examination. Indications: Chest Pain. 2D/M Mode Doppler Measurement Value Normal Ranges Measurement Value Normal Ranges AoR Diam MM 3.1 cm CECE Vmax 2.4 cm2 ACS MM 2.0 cm CECE VTI 2.4 cm2 LA/Ao MM 1.2 AV Mean Baljit 0.8 m/sec LA Dimen MM 3.6 cm AV Mean PG 2.6 mmHg LVIDd 2D 4.5 3.5 - 5.6 cm AV Peak Baljit 1.0 m/sec LVIDs 2D 3.2 2.1 - 4.1 cm AV Peak PG 3.7 mmHg LVPWd 2D 1.1 0.6 - 1.1 cm AV VTI 23.7 cm IVSd 2D 1.0 0.6 - 1.1 cm LVOT Peak Baljit 0.7 m/sec EDV 2D 92.7 cm3 LVOT Peak PG 2.0 mmHg ESV 2D 33.3 cm3 MV E Peak Baljit 0.5 m/sec EF 2D 55.0 50.0 - 65.0 % MV A Peak Baljit 0.6 m/sec LVOT Diam 2.0 cm MV E/A 0.9 MV Decel Time 228 msec MV Decel [place] 2 MV E/A 0.9 TR Peak Baljit 2.0 m/sec TR Peak PG 16.8 mmHg RVSP 20.0 mmHg RA Pressure 3.0 Findings Left Ventricle: Normal left ventricular systolic function. Normal left ventricular cavity size. Normal left ventricular wall thickness. Ejection fraction is visually estimated at 55 %. Tissue Doppler/Mitral Doppler indices are consistent with impaired relaxation (Stage I diastolic dysfunction). Right Ventricle: Normal right ventricular size. Normal right ventricular systolic function. Left Atrium: The left atrium is normal in size. Right Atrium: The right atrium is normal in size. Mitral Valve: Normal appearance of the mitral valve. Mild mitral valve regurgitation. Aortic Valve: Normal appearance of the aortic valve. No significant aortic stenosis or insufficiency. Tricuspid Valve: Normal appearance and function of the tricuspid valve with trace physiologic regurgitation. Estimated peak PA systolic pressure 20 mmHg. Pulmonic Valve: Normal pulmonic valve appearance. There is trace pulmonic regurgitation. Pericardium: Normal pericardium with no significant pericardial effusion. Aorta: Normal aortic root. IVC: Normal size and normal respiratory collapse consistent with normal right atrial pressure. Conclusions 1.Normal left ventricular systolic function. Normal left ventricular cavity size. Normal left ventricular wall thickness. Ejection fraction is visually estimated at 55 %. Tissue Doppler/Mitral Doppler indices are consistent with impaired relaxation (Stage I diastolic dysfunction). 2.Normal right ventricular size. Normal right ventricular systolic function. 3.The left atrium is normal in size. 4.The right atrium is normal in size. 5.Normal appearance of the mitral valve. Mild mitral valve regurgitation. 6.No significant valvular stenosis or regurgitation seen of remaining visualized valves. 7.Normal pericardium with no significant pericardial effusion. Electronically Signed By: Gene Kanh 17-Apr-2017 13:50:30 -0800 Patient Name: VIOLETA ALSTON Study Date: 17-Apr-2017 [id number]
[2017-04-17 14:29] LABS: CALCIUM 9.2 mg/dl (8.4-10.2); CREATININE 0.93 mg/dl (0.44-1.00); POTASSIUM 4.3 mmol/L (3.5-5.1)
[2017-04-17] MEDS ORDERED: IOHEXOL 100 ML ONE (14:59)
[2017-04-17] MEDS ORDERED: SOD CHLORIDE 0.9% 100 ML ONE (14:59)
--- NOTE | 2017-04-17 15:31 | RADRPT ---
PROCEDURE: CTA Chest CLINICAL INDICATION: Chest pain TECHNIQUE: CTA of the chest with 100 cc Omnipaque 350 IV contrast. Coronal, sagittal and 3-D volu metric reformatted images. One or more of the following dose reduction techniques were used: automat ed exposure control, adjustment of the mA and/or kV according to patient size, use of iterative jenae nstruction technique. DICOM images are available. CTDI 17.43 mGy, DLP 605.64 mGy-cm. COMPARISON: Chest x-ray, 04/16/2017 FINDINGS: Lungs: No acute infiltrate, pleural effusion or pneumothorax. No pulmonary nodule or mass. Cardiovascular: No pulmonary emboli. Normal heart size. Scattered aortic atherosclerotic calcificat ions. No thoracic aortic aneurysm or dissection. Lymph nodes: No lymphadenopathy. Mediastinum: No mediastinal mass. Upper abdomen: Hepatic steatosis. Gallbladder is surgically absent. Musculoskeletal: Degenerative enthesopathy of the spine. No focal osseous lesion. Other: Status post right breast lumpectomy and right axillary dissection. IMPRESSION: 1. No pulmonary embolism is identified. 2. Scattered aortic atherosclerotic calcifications are present. 3. No mass, lymphadenopathy, or focal acute infiltrate is seen. 4. Hepatic steatosis. Gallbladder is surgically absent. RPTAT: AAQQ .John Mcdonald MD, Date Time Electronically viewed and signed by .John Mcdonald MD, MD on 04/17/2017 15:31 .R/
--- NOTE | 2017-04-17 15:49 | PDOCDIS ---
Discharge Instructions CONDITION Patient Condition: Stable HOME CARE INSTRUCTIONS: Special Diet: LOW CHOL LOW FAT ACTIVITY: Activity Restrictions: Slowly Increase Activity FOLLOW UP/APPOINTMENTS Follow-up Plan Follow-up with primary care physician within 1 week UVALDO BRIGHT Apr 17, 2017 15:49
[2017-04-17] MEDS ORDERED: ATOR20TA65 PO (15:51)
--- NOTE | 2017-04-17 16:47 | DS ---
Date/Time of Note Date/Time of Note DATE: 04/17/17 TIME: 16:46 Discharge Summary Admission/Discharge Info Admit Date/Time Apr 16, 2017 at 13:12 Discharge Date/Time 04/17/2017 Discharge Diagnosis 1. Atypical chest pain, secondary to costochondritis versus musculoskeletal in setting of known fibromyalgia. 2. History of right breast cancer. 3. Hypertension 4. Fibromyalgia, chronic pain syndrome, narcotic dependent. 5. Osteoarthritis. 6. Obesity. Patient Condition: Stable Consults Cardiology, Dr. Kahn Procedures Midline placement CTA chest Hx of Present Illness Chief complaint: Left-sided chest pain acute onset History of presenting illness: This is a 56-year-old female, obese, with hypertension, chronic pain syndrome/fibromyalgia narcotic dependent, breast cancer status post right mastectomy followed by chemo and radiation 2010, osteoarthritis who presented the emergency department with complaints of acute onset of left-sided chest pain this morning. Patient reports that she woke up with this pain in her left chest, is a stabbing pain under her left breast, she had severe dyspnea on exertion while walking from her bedroom to the restroom, the pain is worse when she is taking a deep breath which sounds like a pleuritic pain. She had a Nitropaste in place , I did remove it as it was noted that her systolic blood pressures were in the 90s. He denies any fevers, chills, cough, vomiting. She did report some nausea with this chest pain. According to the ER physician the patient was still having it in the ED, her first 2 troponins are negative but her symptoms are still concerning. Her d-dimer is greater than 2000. Reviewing her records the patient was here at [facility] couple of weeks ago with complaint of left lower leg pain, she reports that she has been having left lower extremity pain from her cough all the way to her inner thigh. Currently is mostly in the inner thigh area. She has had some swelling on and off of the left lower extremity. He denies any previous history of venous thromboembolism. CT angiogram of the chest is pending, Doppler of the lower extremities are pending. Patient is being admitted to telemetry observation for now. If she is ruled out for venous thromboembolism, we will complete her cardiac workup. She denies any further gastrointestinal or genitourinary complaints, she denies any neurological deficit. Hospital Course Patient was admitted to telemetry primarily for rule out acute coronary syndrome and also rule out venous thromboembolism based on her history. Lower extremity Dopplers were negative. Cardiac enzymes also negative with benign EKG essentially within normal. It was difficult to have the CT angiogram chest done due to difficult IV access. We finally had a midline placed today and patient had a CT angiogram done. He came out negative for venous thromboembolism or pulmonary embolism. No other acute findings. 2D echocardiogram was also done and is essentially benign. I did discuss the case with Dr. Kahn from cardiology, he does not think this pain is cardiac in nature and therefore no stress test to be done. He did agree with discharge home if CT angiogram negative. I have conveyed all this to the patient, her left-sided pain is reproducible, under the left breast likely either muscular related versus costochondritis versus related to her fibromyalgia. I have advised her to continue using her NSAIDs for pain relief and Rickreall. She will be discharged home with follow-up with her primary care physician who can refer her back to rheumatology regarding her fibromyalgia. I will add Robaxin to pain medications. Home Meds Active Scripts Methocarbamol* (Robaxin*) 750 Mg Tablet, 750 MG PO Q6H Y for MUSCLE SPASMS, #60 TAB Prov:UVALDO BRIGHT 04/17/17 Atorvastatin Calcium (Atorvastatin Calcium) 20 Mg Tablet, 20 MG PO HS for 30 Days, TAB Prov:UVALDO BRIGHT 04/17/17 Hydrocodone/Acetaminophen (Rickreall 5-325 Tablet) 1 Each Tablet, 1 TAB PO Q6H Y for PAIN, #7 TAB Prov:ALEXANDRA WINTERS 12/26/16 Ibuprofen* (Ibuprofen*) 600 Mg Tablet, 600 MG PO Q6H Y for PAIN, #30 TAB Prov:SHAYLA HOLDER MD 10/04/16 Reported Medications Lorazepam* (Ativan*) 2 Mg Tablet, 2 MG PO HS Y for ANXIETY, #30 TAB 04/16/17 Hydrocodone/Acetaminophen (Rickreall 10-325 Tablet) 1 Each Tablet, 1 EACH PO BID Y for PAIN, TAB 10/06/16 Cholecalciferol* (Vitamin D3*) 1,000 Unit Tablet, 2000 UNIT PO DAILY, TAB 10/06/16 Meloxicam* (Meloxicam*) 7.5 Mg Tablet, 7.5 MG PO DAILY, #30 TAB 10/06/16 Pantoprazole* (Pantoprazole*) 40 Mg Tablet.dr, 40 MG PO DAILY, TAB 10/04/16 Metoclopramide Hcl* (Metoclopramide Hcl*) 10 Mg Tablet, 10 MG PO DAILY Y for NAUSEA AND OR VOMITING, TAB 10/04/16 Ropinirole Hcl* (Ropinirole Hcl*) 1 Mg Tablet, 1 MG PO HS, TAB 07/04/15 Hydrochlorothiazide* (Hydrochlorothiazide*) 25 Mg Tab, 25 MG PO DAILY, TAB 04/28/14 Discontinued Reported Medications Acetaminophen with Codeine (Acetaminophen-Cod #3 Tablet) 1 Each Tablet, 1 TAB PO BID Y for PAIN, #7 TAB 10/06/16 Citalopram Hydrobromide* (Celexa*) 20 Mg Tablet, 20 MG PO DAILY, TAB 04/28/14 Discontinued Scripts Sulfamethoxazole/Trimethoprim* (Bactrim Ds* Tablet) 1 Each Tablet, 1 TAB PO BID , #14 TAB Prov:SHAYLA HOLDER MD 10/04/16 Follow-up Plan Follow-up with primary care physician within 1 week Primary Care Provider Miller Ulrich Time spent on discharge: > 30 minutes Pending Labs Laboratory Tests Test 04/16/17 20:54 04/17/17 09:40 Creatine Kinase 36IU/L (23-200) Creatine Kinase Index 0.6 Creatinine Kinase MB (Mass) < 0.22ng/ml (0.0-2.4) Troponin I < 0.012ng/ml (0.00-0.12) White Blood Count 11.010^3/ul (4.8-10.8) Red Blood Count 4.1610^6/ul (4.20-5.40) Hemoglobin 13.4g/dl (12.0-16.0) Hematocrit 39.1% (37.0-47.0) Mean Corpuscular Volume 94.0fl (82.0-101.0) Mean Corpuscular Hemoglobin 32.2pg (29.0-33.0) Mean Corpuscular Hemoglobin Concent 34.3g/dl (32.0-37.0) Red Cell Distribution Width 13.2% (11.5-14.5) Platelet Count 71032^3/UL (140-415) Mean Platelet Volume 10.7fl (7.4-10.4) Neutrophils % 77.1% (39.0-77.0) Lymphocytes % 17.5% (15.0-51.0) Monocytes % 4.8% (0.0-11.0) Eosinophils % 0.0% (0.0-7.0) Basophils % 0.2% (0.0-2.0) Nucleated Red Blood Cells % 0.0/100WBC (0.0-0.0) Neutrophils # 8.510^3/ul (1.6-7.5) Lymphocytes # 1.910^3/ul (0.8-2.9) Monocytes # 0.510^3/ul (0.3-0.9) Eosinophils # 0.010^3/ul (0.0-0.5) Basophils # 0.010^3/ul (0.0-0.1) Nucleated Red Blood Cells # 0.010^3/ul (0.0-0.0) Sodium Level 138mmol/L (135-144) Potassium Level 4.3mmol/L (3.5-5.1) Chloride Level 106mmol/L (97-110) Carbon Dioxide Level 24mmol/L (21-31) Anion Gap 12 (8-16) Blood Urea Nitrogen 17mg/dl (7-20) Creatinine 0.93mg/dl (0.44-1.00) Glucose Level 103mg/dl (70-220) Calcium Level 9.2mg/dl (8.4-10.2) Phosphorus Level 3.1mg/dl (2.5-4.9) Magnesium Level 2.3mg/dl (1.7-2.5) Triglycerides Level 135mg/dl (0-149) Cholesterol Level 163mg/dl (100-200) LDL Cholesterol, Calculated 91mg/dl HDL Cholesterol 45mg/dl (37-92) Cholesterol/HDL Ratio 3.6RATIO UVALDO BRIGHT Apr 17, 2017 16:47
[2017-04-17] MEDS ORDERED: METH750T93 PO (17:10)
[2017-04-17] MEDS ORDERED: ATORVASTATIN 20 MG TAB PO SCH (21:00)
== END 2017-04-17 18:00 | disposition home or self-care (01) ==
LOC: E/R 03:29 → MS4 13:12
PROVIDERS: ADMIT Internal Medicine; ATTEND Internal Medicine
DX: R07.89 Other chest pain (principal); I10 Essential (primary) hypertension; M79.7 Fibromyalgia; M19.90 Unspecified osteoarthritis, unspecified site; K21.9 Gastro-esophageal reflux disease without esophagitis; G89.4 Chronic pain syndrome; E66.9 Obesity, unspecified; Z68.36 Body mass index [BMI] 36.0-36.9, adult; Z88.6 Allergy status to analgesic agent; Z86.73 Personal history of transient ischemic attack (TIA), and cerebral infarction without residual deficits; F11.20 Opioid dependence, uncomplicated; Z85.3 Personal history of malignant neoplasm of breast; Z92.21 Personal history of antineoplastic chemotherapy; Z92.3 Personal history of irradiation
CPT/HCPCS: 36415; 71010; 71275; 80048; 80053; 80061; 82550; 82553; 83735; 84100; 84484; 85025; 85378; 85610; 85730; 93306; 93970; 96374; 96375; 96376; G0378; J1200; J1650; J2270; J2405; J2930; Q9967

== ENCOUNTER 2017-04-25 22:50 | Emergency (ER) | END 2017-04-26 02:00 | disposition home or self-care (01) ==